=== PATIENT | female | born 1990 | race Caucasian/White ===

== ENCOUNTER 2020-05-27 11:00 | Outpatient (CLI) | payer MEDICAID, SELFPAY ==
--- NOTE | 2020-05-27 11:00 | MM_ITS ---
WS: [id number] DIAGNOSTIC BILATERAL DIGITAL MAMMOGRAM WITH CAD HISTORY: No breast pain today. History of bilateral breast pain. COMPARISON: None available. TECHNIQUE: Bilateral craniocaudad, mediolateral oblique, and mediolateral views are submitted. Comput er aided detection utilized. Breast composition: The breasts are heterogeneously dense, which may obscure small masses. Symmetric appearance of the fibroglandular densities. No distortion or mass. No nipple retraction. Normal appea arnaldo of the axillary tails. MM/[id number] IMPRESSION: BI-RADS: 1-Negative FOLLOW UP: Age 39
== END 2020-05-27 11:01 | disposition home or self-care (01) ==
LOC: RADSHAW 11:04
PROVIDERS: PCP Physician Assistant Medical; Visit Provider Nurse Practitioner Women's Health
DX: Z87.42 Personal history of other diseases of the female genital tract (principal)
CPT/HCPCS: 77066

== ENCOUNTER → 2024-06-19 13:12 | Outpatient (BNVA) | payer MEDICAID, SELFPAY | PROVIDERS: PCP Family Medicine; Visit Provider Nurse Practitioner Women's Health | DX: Z11.3 Encounter for screening for infections with a predominantly sexual mode of transmission (principal) | CPT/HCPCS: 86592; 86803; 87340; 87491; 87591; 87661; 87806 ==

== ENCOUNTER → 2024-09-17 15:00 | Outpatient (BNVA) | payer OTHER, SELFPAY | PROVIDERS: PCP Family Medicine; Visit Provider Nurse Practitioner Women's Health | DX: Z01.419 Encounter for gynecological examination (general) (routine) without abnormal findings (principal) | CPT/HCPCS: 87624 ==

== ENCOUNTER 2025-01-11 10:08 | Emergency (ER) | payer OTHER, SELFPAY ==
--- OUTSIDE RECORDS SUMMARY | 2025-01-07 09:18 | XMS_ITS | Encounter Summary ---
Author Organization [facility] Address [address] [place] [address] Care Team Providers Care Violin Restorer Name Role Phone Unavailable Primary Care Provider Unavailabl e Reason for Visit * Auth/Cert (Routine) Specialty Diagnoses / Procedures Referred By Cameron t Referred To Contact Gastroenterology Diagnoses Blood in stool Change in bowel habits Procedures ENDOSCOPY, COLON, DIAGNOSTIC NV COLONOSCOPY FLX DX W/COLLJ SPEC WHEN PFRMD NV COLONOSCOPY W/BIOPSY SINGLE/MULTIPLE NV COLSC FLX WITH DIRECTED SUBMUCOSAL NJX ANY SBST NV COLSC FLX W/RMVL OF TUMOR POLYP LESION SNARE TQ Edna Jin, ASSOCIATE PROFESSOR OF [employer] [address] [place] [phone] Phone: tel: fax: Carlos Chawla, DO [address] [place] [address] Phone: tel: fax: Referral ID Status Reason Start Date Expiration Date Visits Requested Visits Authorized [id number] Performing Department to Schedule 11/23/2024 12/24/2025 1 1 Encounter Details Date Type Department Care Team (Late st Contact Info) Description 01/07/2025 9:18 AM CDT - 01/07/2025 11:31 AM CDT Hospital Encounter [facility] [address] [place] [address] Carlos Chawla, DO [address] [place] [phone] Discharge Disposition: Home or Self Care Social History Tobacco Use Types Packs/Day Years Used Date Smoking Tobacco: Former Cigarettes Q uit: 07/08/2007 Smokeless Tobacco: Never Alcohol Use Standard Drinks/Week Comments No 0 (1 standard drink = 0.6 oz pur e alcohol) Feeling Safe Answer Date Recorded Are you in a relationship wi th someone who hurts you emotionally and/or physically? 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 Gender Identity Not on file Sexual Orientation Not on file documented as of this encounter Last Filed Vital Signs Vital Sign Reading Time Taken Comments Blood Pressure 93/70 01/07/2025 11:21 AM CDT Pulse 74 01/07/2025 11:21 AM CDT Temperature 36.7 C (98.1 F) 01/07/2025 9:58 AM CDT Respiratory Rate 20 01/07/2025 11:21 AM CDT Oxygen Saturation 100% 01/07/2025 11:21 AM CDT Inhaled Oxygen Concentration - - Weight 56.7 kg (125 lb) 12/22/2024 4:11 PM CDT Height 157.5 cm (5' 2 ) 12/22/2024 4:11 PM CDT Body Mass Index 22.86 12/22/2024 4:11 PM CDT documented in this encounter Discharge Instructions * Discharge Instructions* Adry Talavera ST - 01/07/2025 9:57 AM CDT COLONOSCOPY Endoscopy Discharge Instructions Please read the instructions outlined below and refer to this sheet in the next few weeks. These discharge instructions provide you with general information on caring for yourself after you leave [facility] services. Your doctor may also give you specific instructions. While your treatment has been planned according to the most current medical practices available, unavoidable complications occasionally occur. If you have any problems or questions after discharge, please call your doctor. Your procedure today is: Colonoscopy ACTIVITY You received sedation for your procedure today and we recommend the following: No driving or activity that requires concentration until the next day. Take frequent rest periods for the rest of the day today. Do not sign any important legal documents or operate any machinery until the next day. Due to the effects of sedation you will not have the same mental functionality as you normally do, therefore you should plan to rest at home today. It is recommended that you have a responsible adultstay with you the rest of the day today. NUTRITION Drink plenty of fluids. You may resume your normal diet. Begin with a light meal and progress to your normal diet. Avoid alcoholic beverages for 24 hours or as instructed by your caregiver. MEDICATIONS You should check with your physician before resuming any blood thinners or aspirin products. You may resume your normal medications unless your caregiver tells you otherwise. WHAT YOU CAN EXPECT TODAY You may experience abdominal discomfort such as a feeling of fullness or gas pains. Walking will help expel (get rid of) air and reduce the bloated feeling in your abdomen. FOLLOW UP Your doctor will notify you of your test results in the following ways: Your doctor may not call, but you will receive a letter in the mail with your results. Most results will post to your PeerApp account. To sign up for PeerApp, go to [email or web address] Now CALL A PHYSICIAN IMMEDIATELY FOR ANY OF THE FOLLOWING: Severe pain or excessive vomiting. Vomiting or passing of blood. Temperature greater than 101 or shaking chills. Redness, tenderness and swelling at site of IV that persists greater than 48 hours. RESULTS: If specimens (polyp, biopsy, etc.) were taken the results could take several days. If you do not receive results within 10 days, please call our office. A full report will be sent to your referring physician. [facility] - Gastroenterology [address], [address] Saturday- 8am-5pm & Fridays 8am-12pm please call: [phone] After hours voicemail: [phone] [facility] - [facility] [address] [phone] [facility] [address] [facility] [address] [phone] Gastroenterologists Nathanael Orozco, MD Tay Chaves MD Chris Knudsen, DO Christopher Koehn, MD Donald Mangum, MD Gisela Mikaela Sanon, DO Donato Mcmahon, MD Darrin St. Javi, MD [facility] - General and Specialty Surgery [address] [facility]. [address] Colorectal Surgeons DO Reza Mandujano MD I have received instructions from a nurse prior to my procedure and I understand the plan of care when I go home today. We appreciate your trust and greatly value your feedback. Our goal is to provide you with the highest level of care and service. You may be randomly selected to participate in a telephone survey about your visit. Your feedback about the positive experiences and opportunities for us to better serve you is import to us. Thank you for choosing [facility] Endoscopy. documented in this encounter Medications at Time of Discharge Simethicone 125 mg Tablet Dispense (3) 125 mg Simethicone chewable tablets with prep as directed. 3 Tablet 12/22/2024 multivitamin (DAILY-VIDYA) tablet Take 1 Tablet by mouth daily. 08/09/2020 documented as of this encounter H&P Notes * Carlos Chawla DO - 01/07/2025 10:38 AM CDT Endoscopy History and Physical This is a 35 y.o. female patient scheduled for Colonoscopy for the indication as listed: Diarrhea and rectal bleeding. Patient had risks and benefits discussed for colonoscopy with polypectomy or intervention of bleeding if necessary. The risks which include but are not limited to bleeding, perforation, swallowing ofstomach contents into the lungs (aspiration) or problems with heart or lung function associated with the procedure or sedation, unexpected allergic reaction to the medication used, damage to neighboring organs, infection and missed abnormalities such as polyps or cancers. Patient was explained thatcertain co-morbidities may increase the risk of some complications. The exam does not eliminate thefuture risk of cancer. Alternatives include stools tests and imaging studies. Patient had risks and benefits discussed for EGD with GUERRA capsule, biopsies, dilation, banding orintervention for bleeding if necessary. The risks which include but are not limited to unexpected allergic reaction to the medication used, a tear in the lining of the esophagus, stomach or small intestine, bleeding which may require transfusions, failure to diagnose as this is not a perfect test, infection, swallowing of stomach contents into the lungs (aspiration) or problems with heart or lungfunction associated with the procedure or sedation. Patient was explained that certain co-morbidities may increase the risk of some complications. Alternatives were discussed such as other tests or procedures along with medication trials. Explained to patient that treatment of complications may require hospitalization, antibiotics, additional procedures, blood transfusions, surgery or other measures deemed advisable for health and well-being. Past Medical History: Diagnosis Date Heart palpitations Patient denies medical problems UTI (urinary tract infection) Vitamin D deficiency Past Surgical History: Procedure Laterality Date HX APPENDECTOMY Allergies Allergen Reactions Iodinated Contrast Media Hives and Rash Morphine Rash Sulfa (Sulfonamide Antibiotics) Rash Social History Socioeconomic History Marital status: Spouse name: Not on file Number of children: Not on file Years of education: Not on file Highest education level: Not on file Occupational History Not on file Tobacco Use Smoking status: Former Current packs/day: 0.00 Types: Cigarettes Quit date: 07/08/2007 Years since quittin.5 Smokeless tobacco: Never Vaping Use Vaping status: Never Used Substance and Sexual Activity Alcohol use: No Drug use: No Sexual activity: Yes Partners: Male Other Topics Concern Not on file Social History Narrative Not on file Social Drivers of Health Food Insecurity: Not on file Transportation Needs: Not on file Feeling Safe: Not At Risk (01/07/2025) Feeling Safe Patient has indicated abuse: : No Housing Stability: Not on file Medications Prior to Admission Medication Sig Dispense Refill Last Dose/Taking multivitamin (DAILY-VIDYA) tablet Take 1 Tablet by mouth daily. Past Week Family History Problem Relation Name Age of Onset Healthy Father Jame guerrero Cancer Paternal Grandfather Darrin guerrero rectal cancer Heart Disease Maternal Grandfather Jayden kaur Cancer Maternal Grandmother Marcie kaur skin cancer Heart Disease Maternal Grandmother Marcie kaur Healthy Mother Waylon kaur Breast Cancer Other pggm Colon Cancer Neg Hx Physical Exam: General appearance/mental status patient alert and oriented in time place and person Neurological system within normal limits ASA Classification: ASA 2 - Patient with mild systemic disease with no functional limitations Mental Status Alert Lungs: normal respiratory effort and no acute respiratory distress Heart: regular rate Abdomen: Soft, non-tender Assessment: Plan: Will proceed with the above mentioned procedure as scheduled. documented in this encounter Procedure Notes * Carlos Chawla DO - 01/07/2025 10:57 AM CDTAssociated Order(s): COLONOSCOPY REPORT [facility] Patient Name: Blanca Lai Procedure Date: 01/07/2025 Date of : 1990 Admit Type: Outpatient Age: 35 Attending MD: Carlos Chawla DO, Procedure: Colonoscopy Indications: Chronic diarrhea, Rectal bleeding Providers: Carlos Chawla DO Referring MD: Medicines: Propofol per Anesthesia Complications: No immediate complications. Procedure: After I obtained informed consent, the scope was passed under direct vision. Throughout the procedure, the patient's blood pressure, pulse, and oxygen saturations were monitored continuously. The Colonoscope was introduced through the anus and advanced to the cecum, identified by appendiceal orifice and ileocecal valve. The colonoscopy was performed without difficulty. The patient tolerated the procedure well. The quality of the bowel preparation was good. Estimated Blood Loss: Estimated blood loss was minimal. Findings: Inflammation characterized by erosions, erythema and friability was found in a continuous and circumferential pattern from the anus to the transverse colon. The ascending colon and the cecum were spared. The inflammation was moderate in severity. Biopsies were taken with a cold forceps for histology. The terminal ileum appeared normal. Impression: - Left-sided ulcerative colitis. Inflammation was found from the anus to the transverse colon. This was moderate in severity. Biopsied. - The examined portion of the ileum was normal. Recommendation: - Patient has a contact number available for emergencies. The signs and symptoms of potential delayed complications were discussed with the patient. Return to normal activities tomorrow. Written discharge instructions were provided to the patient. - Resume previous diet. - Continue present medications. - Repeat colonoscopy date to be determined after pending pathology results are reviewed for surveillance. Carlos Chawla DO 01/07/2025 10:57:42 AM Number of Addenda: 0 Note Initiated On: 01/07/2025 10:13 AM Scope Withdrawal Time 0 hours 6 minutes 37 seconds Scope In: 10:44:04 AM Scope Out: 10:54:25 AM [address] [place], [place] documented in this encounter OR Notes * Tara-OP - Radha Tse RN - 12/22/2024 4:27 PM CDT NULYTE You must bring a responsible adult shuttle driver who is here the entire time you are here. We also ask that you have an adult who can stay with you the rest of the day because of the sedation. No foods with seeds or popcorn for 5 days prior to procedure. Denies constipation. Clear liquids the entire day prior to procedure. (NO RED COLORED beverages or milk products) In a.m. on day prior to procedure, add water to powder in nulytley container to fill line and refrigerate Drink 1/2 the prep starting at 5 pm the day before, drink an 8 ounce glass every 10-15 minutes. After finishing evening prep, chew 1 Gas X tablet, followed by 8 oz of water. May have additional clear liquids after first round of prep. 4 hours before your you leave home drink the other 1/2 in the same manner After morning round of prep, chew 2 Gas X tablets, followed by 8 oz of water. May take heart, blood pressure or seizure meds. 30 min. After completing prep with sip of water only. Nothing by mouth (including clear liquids) for 2 hours prior to procedure arrival time. If afternoon appointment, may have clear liquids prior to completing second half of prep on procedure day. No diabetic meds the morning of the procedure. Do not bring any jewelry or valuables to your appointment. No driving a vehicle or operating heavy machinery and/or making important decisions for 24 hours after your procedure. Denies recent or pending surgery. If you wear oxygen and have a portable tank, please bring it with you the day of your procedure. Bring only your shuttle driver the day of your procedure. Appointment time and location verified. documented in this encounter Plan of Treatment Upcoming Encounters Date Type Department Care Team (Late st Contact Info) Description 02/08/2025 10:15 AM CDT Office Visit [facility] Neurology [address] [facility] [address] [phone] [place] [address] [facility] [address] [place] [address] 02/23/2025 2:30 PM CDT Office Visit [facility] [address] [place] [address] Edna Stoner FNP [address] [facility] [address] [place] [address] 04/01/2025 2:30 PM CDT Appointment [facility] [address] [place] [phone] Veto Lipscomb MD [address] [place] [phone] Pending Results Name Type Priority Associated Diagnoses Date /Time PATHOLOGY Pathology Pathology 01/07/2025 10: 44 AM CDT Scheduled Orders Name Type Priority Associated Diagnoses Orde r Schedule PATHOLOGY Pathology Pathology Release Upon O rdering for 1 Occurrences starting 01/07/2025, 1 completed documented as of this encounter Procedures Procedure Name Priority Date/Time Associated Diagnosis Comments COLONOSCOPY REPORT 01/07/2025 10 :57 AM CDT POC , URINE Routine 01/07/2025 10:12 AM CDT NV COLONOSCOPY FLX DX W/COLLJ SPEC WHEN PFRMD 01/07/2025 9:20 AM CDT Blood in stool Change in bowel habits Case Notes Procedure :COLON Special Notes: MIRALAX PREP PER EDNA STONER Dx: Blood in stool, Change in bowel habits BT:NONE Diabetic: NO Diabetic/WT med:NONE LOC & REASON: HOSP - DUE TO SEDATION RISK BMI: 23.2 Last Procedure date & location Referring Provider: EDNA STONER Doc:Dr Carlos Chawla Insurance: [employer] documented in this encounter Results * COLONOSCOPY REPORT (01/07/2025 10:57 AM CDT) Narrative Procedure Note Carlos Chawla DO - 01/07/2025 10:57 AM CDT [facility] Patient Name: Blanca Lai Procedure Date: 01/07/2025 Date of : 1990 Admit Type: Outpatient Age: 35 Attending MD: Carlos Chawla DO, Procedure: Colonoscopy Indications: Chronic diarrhea, Rectal bleeding Providers: Carlos Chawla DO Referring MD: Medicines: Propofol per Anesthesia Complications: No immediate complications. Procedure: After I obtained informed consent, the scope was passed under direct vision. Throughout the procedure, the patient's blood pressure, pulse, and oxygen saturations were monitored continuously. The Colonoscope was introduced through the anus and advanced to the cecum, identified by appendiceal orifice and ileocecal valve. The colonoscopy was performed without difficulty. The patient tolerated the procedure well. The quality of the bowel preparation was good. Estimated Blood Loss: Estimated blood loss was minimal. Findings: Inflammation characterized by erosions, erythema and friability was found in a continuous and circumferential pattern from the anus to the transverse colon. The ascending colon and the cecum were spared. The inflammation was moderate in severity. Biopsies were taken with a cold forceps for histology. The terminal ileum appeared normal. Impression: - Left-sided ulcerative colitis. Inflammation was found from the anus to the transverse colon. This was moderate in severity. Biopsied. - The examined portion of the ileum was normal. Recommendation: - Patient has a contact number available for emergencies. The signs and symptoms of potential delayed complications were discussed with the patient. Return to normal activities tomorrow. Written discharge instructions were provided to the patient. - Resume previous diet. - Continue present medications. - Repeat colonoscopy date to be determined after pending pathology results are reviewed for surveillance. Carlos Chawla DO 01/07/2025 10:57:42 AM Number of Addenda: 0 Note Initiated On: 01/07/2025 10:13 AM Scope Withdrawal Time 0 hours 6 minutes 37 seconds Scope In: 10:44:04 AM Scope Out: 10:54:25 AM [address] [place], [place] us Carlos Chawla DO GI PROCEDURE ORDERABLES Final Result * POC , URINE (01/07/2025 10:12 AM CDT) HCG QUAL URINE Negative Negative 01/07/2025 10:12 AM CDT [facility] Urine 01/07/2025 10:1 2 AM CDT 01/07/2025 10:11 AM CDT Narrative [facility] - 01/07/2025 10:12 AM CDT Positive : Result is greater than or equal to 25 mIU/mL Negative: Result is less than 25 mIU/mL Invalid: Result is borderline or indeterminate,send to lab for serum test methodology. us Carlos Chawla DO POINT OF CARE TESTING F inal Result [facility] CLIA # [id number] [address] [address] [place] [address] documented in this encounter Visit Diagnoses Not on filedocumented in this encounter
--- OUTSIDE RECORDS SUMMARY | 2025-01-07 09:20 | XMS_ITS | Encounter Summary ---
Author Organization [facility] Address [address] [place] [address] Care Team Providers Care Non Clinical Advisor Name Role Phone Unavailable Primary Care Provider Unavailabl e Reason for Visit * Auth/Cert (Routine) Specialty Diagnoses / Procedures Referred By Cameron t Referred To Contact Gastroenterology Diagnoses Blood in stool Change in bowel habits Procedures ENDOSCOPY, COLON, DIAGNOSTIC NE COLONOSCOPY FLX DX W/COLLJ SPEC WHEN PFRMD NE COLONOSCOPY W/BIOPSY SINGLE/MULTIPLE NE COLSC FLX WITH DIRECTED SUBMUCOSAL NJX ANY SBST NE COLSC FLX W/RMVL OF TUMOR POLYP LESION SNARE TQ Edna Jin, CAE ENGINEER [address] [address] Phone: tel: fax: Carlos Chawla, DO [address] [place] [address] Phone: tel: fax: Referral ID Status Reason Start Date Expiration Date Visits Requested Visits Authorized [id number] Performing Department to Schedule 11/23/2024 12/24/2025 1 1 Encounter Details Date Type Department Care Team (Late st Contact Info) Description 01/07/2025 9:20 AM CDT - 01/07/2025 9:40 AM CDT Surgery [facility] Endoscopy [address] [place] [address] Carlos Chawla, DO [address] [place] [address] COLONOSCOPY Surgery Details Date/Time Status Location OR Service Patient Class Case Class Case Type Trauma Case? 01/07/2025 9:20 AM Posted [facility] NE 03 Gastroenterology Outpatient Elective No Panel 1 Procedure LRB Anes Op Region Wound Class Comments COLONOSCOPY N/A Monitored Anesth etic Care Anus Procedure :COLON Special Notes: MIRALAX PREP PER EDNA GEORGIANA Dx: Blood in stool, Change in bowel habits BT:NONE Diabetic: NO Diabetic/WT med:NONE LOC & REASON: HOSP - DUE TO SEDATION RISK BMI: 23.2 Last Procedure date & location Referring Provider: EDNA STONER Doc:Dr Carlos Chawla Insurance: [employer] Surgeon Surgeon Role Service Panel Carlos Chawla, DO Primary Gastroenterolo gy 1 Case Notes Procedure :COLON Special Notes: MIRALAX PREP PER EDNA GEORGIANA Dx: Blood in stool, Change in bowel habits BT:NONE Diabetic: NO Diabetic/WT med:NONE LOC & REASON: HOSP - DUE TO SEDATION RISK BMI: 23.2 Last Procedure date & location Referring Provider: EDNA STONER Doc:Dr Carlos Chawla Insurance: PRIVATE HEALTH documented in this encounter Social History Tobacco Use Types Packs/Day Years [...] on file 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 Your doctor may also give you specific [...] results. Most results will post to your EverCharge account. To sign up for EverCharge, go to www.[employer] Business Plan[employer] Now CALL A PHYSICIAN IMMEDIATELY FOR ANY [...] physician. [facility] - Gastroenterology [address] [facility], [address] Saturday- 8am-5pm & Fridays 8am-12pm please call: [phone] After hours voicemail: [phone] [facility] Endoscopy - Lower Level [address] [phone] [facility] End[facility] - [place] [address] [facility] [facility] Emergency Room [address] [phone] Gastroenterologists Nathanael Orozco, MD Tay Chaves MD Chris Knudsen, MD Toi Strauss MD Gisela Ocasio Quinones, MD Darrin Benitez MD [facility] - General and Specialty Surgery [address] Colorectal Surgeons Alicia Rodriguez, DO Reza Peters MD I have received instructions from a [...] import to us. Thank you for choosing [facility] Endoscopy. documented in this encounter Medications at [...] 01/07/2025 10:57 AM CDTAssociated Order(s): COLONOSCOPY REPORT [facility] GI Patient Name: Blanca Lai Procedure Date: [...] pathology results are reviewed for surveillance. Carlos Chawal DO 01/07/2025 10:57:42 AM Number of Addenda: 0 Note Initiated On: 01/07/2025 10:13 AM Scope Withdrawal Time 0 hours 6 minutes 37 seconds Scope In: 10:44:04 AM Scope Out: 10:54:25 AM [address] [place], [place] documented in this encounter OR Notes * Tara-OP - Rahda Tse RN - 12/22/2024 4:27 PM CDT NULYTE You must bring a responsible adult utility driver who is here the entire time [...] day of your procedure. Bring only your utility driver the day of your procedure. Appointment time and location verified. documented in this encounter Plan of Treatment Upcoming Encounters Date Type Department Care Team (Late st Contact Info) Description 02/08/2025 10:15 AM CDT Office Visit [facility] Neurology [address] [place] [phone] [place] [address] [address] 02/23/2025 2:30 PM CDT Office Visit [facility] Gastroenterology- [place] [address] [address] Edna Stoner FNP [address] [address] 04/01/2025 2:30 PM CDT Appointment [facility] Neurology [facility] [address] [place] [address] Veto Lipscomb MD [address] [place] [phone] Pending Results Name Type Priority Associated Diagnoses [...] , URINE Routine 01/07/2025 10:12 AM CDT NE COLONOSCOPY FLX DX W/COLLJ SPEC WHEN PFRMD [...] Chawla DO - 01/07/2025 10:57 AM CDT [facility] GI Patient Name: Blanca Lai Procedure Date: [...] Scope Out: 10:54:25 AM [address] [place], [place] Carlos Chawla DO GI PROCEDURE ORDERABLES Final Result * POC , URINE (01/07/2025 10:12 AM CDT) HCG QUAL URINE Negative Negative 01/07/2025 10:12 AM CDT [facility] Urine 01/07/2025 10:1 2 AM CDT 01/07/2025 10:11 AM CDT Narrative [facility] - 01/07/2025 10:12 AM CDT Positive : Result is greater than or equal to 25 mIU/mL Negative: Result is less than 25 mIU/mL Invalid: Result is borderline or indeterminate,send to lab for serum test methodology. Carlos Chawla DO POINT OF CARE TESTING F inal Result [facility] CLIA # [id number] [address] [place] [address] documented in this encounter Visit Diagnoses Not on filedocumented in this encounter
--- OUTSIDE RECORDS SUMMARY | 2025-01-07 10:39 | XMS_ITS | Encounter Summary ---
Author Organization [facility] Address [address] [place] [address] Care Team Providers Care Station Baggage Agent Name Role Phone Unavailable Primary Care Provider Unavailabl e Reason for Visit * Auth/Cert (Routine) Specialty Diagnoses / Procedures Referred By Cameron t Referred To Contact Gastroenterology Diagnoses Blood in stool Change in bowel habits Procedures ENDOSCOPY, COLON, DIAGNOSTIC OR COLONOSCOPY FLX DX W/COLLJ SPEC WHEN PFRMD OR COLONOSCOPY W/BIOPSY SINGLE/MULTIPLE OR COLSC FLX WITH DIRECTED SUBMUCOSAL NJX ANY SBST OR COLSC FLX W/RMVL OF TUMOR POLYP LESION SNARE TQ Mary Jane Jin, GAS METER INSTALLER HELPER [address] [place] [address] Phone: tel: fax: Carlos Chawla, DO [address] [place] [address] Phone: tel: fax: Referral ID Status Reason Start Date Expiration Date Visits Requested Visits Authorized [id number] Performing Department to Schedule 11/23/2024 12/24/2025 1 1 Encounter Details Date Type Department Care Team (Late st Contact Info) Description 01/07/2025 10:39 AM CDT Anesthesia Event [facility] Endoscopy [address] [place] [phone] Kolton Lebron MD [address] [place] [address] Anesthesia Record Procedure Summary Procedure Name Responsible Anesthesiologist Anesthesia Start Time Anesthesia Stop Time COLONOSCOPY (Anus) Kolton Lebron MD 01/07/25 1039 1059 Events Date Time Event Comment 01/07/2025 1018 1033 In Room This event disp lays the In Room time documented in the Surgical Log. Deleting this event will not remove it from the log but will remove it from the Grid and Graph timeline. 1039 AN Equip Check Anesthesia eq uipment and materials checked in accordance with local policy. 1039 An Start 1039 An Start Data 1040 Pre-Induction Immediate pre- induction anesthetic assessment performed. Vital signs as noted on graphic. 1042 An Induction 1044 Procedure Start This event d isplays the Procedure Start time documented in the Surgical Log. Deleting this event will not remove it from the log but will remove it from the Grid and Graph timeline. 1044 Anesthesia Ready 1054 Procedure Stop This event di splays the Procedure Stop time documented in the Surgical Log. Deleting this event will not remove it from the log but will remove it from the Grid and Graph timeline. 1058 an stop data 1059 Out of Room This event disp lays the Out of Room time documented in the Surgical Log. Deleting this event will not remove it from the log but will remove it from the Grid and Graph timeline. 1059 An Stop 1059 Hand-off to Receiving Clinic piero Meds Name Total propofol (DIPRIVAN) 10 mg/mL injection 280 mg lidocaine (XYLOCAINE) 2% injection 100 m g sodium chloride 0.9% infusion 350 mL * Agents Name O2 O2 * Blood No blood administrations on file. 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 Gender Identity Not on file Sexual Orientation Not on file documented as of this encounter OR Notes * Anesthesia Postprocedure Evaluation - Kolton Lebron MD - 01/07/2025 12:08 PM CDT Post Anesthesia Evaluation Vitals: Vitals Value Taken Time BP 93/70 01/07/25 1121 Temp Resp 20 01/07/25 1121 SpO2 100 % 01/07/25 1121 Pulse 74 01/07/25 1121 Heart Rate 74 bpm 01/07/25 1121 Pain Rating: Anesthesia Post Evaluation Patient location during evaluation: PACU Patient participation: patient was able to participate in the post op evaluation Level of consciousness: 0 = alert, responsive, answers simple questions appropriately, able to perform simple tasks Pain management: adequate Airway patency: patent Nausea or Vomiting: none Cardiovascular status: regular rate and rhythm Respiratory status: no respiratory symptoms Hydration status: well hydrated No notable events documented. Kolton Lebron MD * Anesthesia Handoff - Eamon Harris CRNA - 01/07/2025 10:59 AM CDT Post-Anesthetic transfer of care report elements to appropriate post-anesthesia recovery environment completed in accordance with procedure. I completed my handoff to the receiving nurse during which we: 1. Identified the patient 2. Identified the responsible provider 3. Reviewed the pertinent medical history 4. Discussed the surgical course 5. Reviewed intra-op anesthesia management and issues during anesthesia 6. Set expectations for post-procedure period 7. Orders as necessary and appropriate for continuation of care are present in Epic. 8. Allowed opportunity for questions and acknowledgement of understanding. Vitals stable, spont resp, transport to Recovery. Report to GI RN. 10:59 AM Eamon Harris CRNA * Anesthesia Preprocedure Evaluation - Kolton Lebron MD - 01/07/2025 10:17 AM CDT Relevant Problems No relevant active problems Anesthesia Evaluation Airway Neck ROM: full Dental Pulmonary - negative ROS breath sounds clear to auscultation Cardiovascular - negative ROS Rhythm: regular Rate: normal Neuro/Psych (+) headaches GI/Hepatic/Renal - negative ROS Endo/Other - negative ROS Abdominal Anesthesia History Anesthesia Plan ASA Final: 1 MAC NPO status > 8 hours Anesthetic plan and risks discussed with Patient. Plan discussed with Locker Room Supervisor. documented in this encounter Plan of Treatment Upcoming Encounters Date Type Department Care Team (Late st Contact Info) Description 02/08/2025 10:15 AM CDT Office Visit [facility] Neurology [address] [place] [phone] Bella Stern MD [address] [place] [address] 02/23/2025 2:30 PM CDT Office Visit [facility] Gastroenterology- [place] [address] [address] Mary Jane Rodriguez [facility] [address] [address] 04/01/2025 2:30 PM CDT Appointment [facility] Neurology [facility] [address] [place] [address] Veto Lipscomb MD [address] [place] [address] documented as of this encounter Visit Diagnoses Not on filedocumented in this encounter Administered Medications Inactive Administered Medications - up to 3 most recent administrations Medication Order MAR Action Action Date Dose Rate Site lidocaine 2 % (XYLOCAINE) injection IV, INTRA-PROCEDURE PRN, Starting on Yamini 01/07/25 at 1042, Until Yamini 01/07/25 at 1059, Routine, Anesthesia Intra-op Given 01/07/2025 10:42 AM CDT 100 mg propofoL (DIPRIVAN) injection IV, INTRA-PROCEDURE PRN, Starting on Yaimni 01/07/25 at 1042, Until Yamini 01/07/25 at 1059, Anesthesia Intra-op Given 01/07/2025 10:53 AM CDT 30 mg Given 01/07/2025 10:50 AM CDT 50 mg Given 01/07/2025 10:48 AM CDT 50 mg sodium chloride 0.9 % infusion IV, INTRA-PROCEDURE CONTINUOUS PRN, Starting on Yamini 01/07/25 at 1039, Until Yamini 01/07/25 at 1059, Routine, Anesthesia Intra-op New Bag 01/07/2025 10:39 AM CDT documented in this encounter
[2025-01-11] VITALS (14 sets, daily range): BP systolic 93–114; BP diastolic 59–73; PULSE 96; RESP 16; TEMP 36.9; O2SAT 97–100; BMI 22.8
--- OUTSIDE RECORDS SUMMARY | 2025-01-11 10:32 | XMS_ITS | Patient Health Record ---
Author Organization [facility] Address [address] [place] [address] Support Name Relationship Address Phone [facility] Emergency Contact [address] [place] [address] Blanca Lai Guarantor Unknown [phone] Allergies Allergen (clinical drug ingredient) Drug/Non Drug Allergy documented on EMR Reaction Allergy Type Onset Date Status Iodinated contrast media (substance) Iodinated Diagnostic Agents unknown Drug Allergy Active morphine Morphine unknown Drug Allergy Active Substance with sulfonamide structure and antibacterial mechanism of action (substance) Sulfa Antibiotics unknown Drug Allergy Active Reason For Referral No Information Medications Medication SIG (Take, Route, Frequency, Duration) Notes Start Date End Date Status Pantoprazole Sodium 40 MG 1 tablet Orall y Once a day for 90 days 06/12/2022 Not-Taking Multivitamin - 1 tablet Orally Once a day Active Social History Tobacco Use: Social History Observation Description Date Details (start date - stop date) Former Smoker NA - NA xTobacco Use/Smoking Question Answer Notes Are you a former smoker How long has it been since you last smoked? > 10 years Alcohol Screen (Audit-C) Question Answer Notes Did you have a drink containing alcohol in the p ast year? 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 Health Plan Medicaid Replacement [address] [place] [address] [id number] Blanca Lai Self - patient is the insured [employer] [address] [place] [address] [id number] Blanca Lai Self - patient is the insured Medical (General) History Medical History History ICD Code HX of breast psychiatric care Surgical History Surgery Date(Month/Year) HX of appendectomy
--- OUTSIDE RECORDS SUMMARY | 2025-01-11 10:32 | XMS_ITS | Data Portability ---
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 Plan of Treatment Reminders Order Date Submit Date Provider Last Modified By Organization Details Last Modified Time Details Appointments None recorded. Lab vitamin D, 25-hydroxy, total, serum 2024 025 [facility], [address], [address], [place], [address], 5 07:44:00 CBC 2024 025 [facility] [employer] [facility], [facility] [address], [address], [place], [address], 5 08:45:20 magnesium, serum or plasma 2023 024 [facility] [address], [address], [place], [address], 4 05:51:27 vitamin B12, serum 2023 024 [facility], [facility] [address], [address], [place], [address], 4 05:51:29 vitamin D, 25-hydroxy, total, serum 2023 024 24[facility]y [facility], [address], [address], [place], [address], 4 05:51:30 TSH, serum or plasma 2023 024 [facility]y [facility], [address] , [address], [place], [address], 4 05:51:28 Referral None recorded. Procedures None recorded. Surgeries None recorded. Imaging electrocard iogram 2024 025 [facility] [address] [place], [address], 5 16:13:31 PFT, complete [address] (Scheduling Orders), [address] [place], [address], 5 09:48:48 US, gallbladder 2023 024 [email or web address] 2 [facility], [address] [place], [address], 4 17:37:21 Medication Orders None recorded. Patient TargetsNo targets recorded. Patient InstructionsNo instructions recorded. Reason for Referral None Reported. Results Created Date Observation Date Name Description Value Unit Range Abnormal Flag Note LastModifiedBy Organization Detail LastModifiedTime 05/19/2005/20/2024 MAGNE SIUM magnesium 2.1 mg/dL 1.5-2. 5 normal Not Available [employer] [facility] [address] , [place], [address], 05/20/2024 05:51:27 05/19/20 24 05/20/2024 TSH TSH 1.27 mIU/L normal Refer ence Range > or = 20 Years 0.40- 4.50 Pregn ashley Range s First trime ster 0.26- 2.66 Secon d trime ster 0.55- 2.73 Third trime ster 0.43- 2.91 Not Available [employer] [facility] [address] [place], [address], 05/20/2024 05:51:28 05/19/20 24 05/20/2024 VITAM IN B12 vitamin B12 560 pg/mL 200-11 00 normal Not Available [employer] [facility] [address] [place], [address], 05/20/2024 05:51:29 05/19/20 24 05/20/2024 VITAM IN D,25- OH,TO CARI,I A vitamin D,25-oh,tota l,ia 27 NG/mL 30-100 low Vitam in D Statu s 25-OH Vitam in D: Defic iency : <20 ng/mL Insuf ficie ncy: 20 - 29 ng/mL Optim al: > or = 30 ng/mL For 25-OH Vitam in D testi ng on patie nts on D2-retana pplem entat ion and patie nts for whom quant itati on of D2 and D3 fract ions is requi red, the [facility] Assur eD(TM ) 25-OH VIT D, (D2,D 3), LC/MS /MS is recom zulema d: order code 33285 (jose ents >2yrs ). See Note 1 Note 1 For addit ional infor kavita thakkar refer to http: //[facility] Veronica gnmillie ics.c om/fa q/FAQ 199 (This link is being provi ded for infor marla fair/ larisa avila purpo ses only. ) Not Available [employer] [facility] [address] [place], [address], 05/20/2024 05:51:30 07/24/19 25 07/25/2024 CBC (INCL UDES DIFF/ PLT) white blood cell count 5.8 thous and/u L 3.8-10 .8 normal Not Available [employer] [facility] [address] [place], [address], 07/25/2024 07:43:59 07/24/19 25 07/25/2024 CBC (INCL UDES DIFF/ PLT) red blood cell count 4.80 murali on/uL 3.80-5 .10 normal Not Available [address], [address], 07/25/2024 07:43:59 07/24/19 25 07/25/2024 CBC (INCL UDES DIFF/ PLT) hemoglobin 10.8 g/dL 11.7-1 5.5 low Not Available [address], [address], 07/25/2024 07:43:59 07/24/19 25 07/25/2024 CBC (INCL UDES DIFF/ PLT) hematocrit 35.4 % 35.0-4 5.0 normal Not Available [address], [address], 07/25/2024 07:43:59 07/24/19 25 07/25/2024 CBC (INCL UDES DIFF/ PLT) MCV 73.8 fL 80.0-1 00.0 low Not Available [address], [address], 07/25/2024 07:43:59 07/24/19 25 07/25/2024 CBC (INCL UDES DIFF/ PLT) MCH 22.5 pg 27.0-3 3.0 low Not Available [address], [address], 07/25/2024 07:43:59 07/24/19 25 07/25/2024 CBC (INCL UDES DIFF/ PLT) MCHC 30.5 g/dL 32.0-3 6.0 low For adult s, a sligh t decre ase in the calcu lated MCHC value (in the range of 30 to 32 g/dL) is most likel y not clini bear signi lobo t; vince er, it shoul d be inter prete d with cauti on in virtua voorhees n with other red cell roman eters and the patie nt's clini jae condi tion. Not Available [address], [address], 07/25/2024 07:43:59 07/24/19 25 07/25/2024 CBC (INCL UDES DIFF/ PLT) RDW 14.3 % 11.0-1 5.0 normal Not Available [address], [address], 07/25/2024 07:43:59 07/24/1907/25/2024 CBC (INCL UDES DIFF/ PLT) platelet count 316 thous and/u L 140-40 0 normal Not Available [address], [address], 07/25/2024 07:43:59 07/24/19 25 07/25/2024 CBC (INCL UDES DIFF/ PLT) MPV 10.9 fL 7.5-12 .5 normal Not Available [address], [address], 07/25/2024 07:43:59 07/24/19 25 07/25/2024 CBC (INCL UDES DIFF/ PLT) absolute neutrophils 3468 cells /uL 1500-7 800 normal Not Available [address], [address], 07/25/2024 07:43:59 07/24/19 25 07/25/2024 CBC (INCL UDES DIFF/ PLT) absolute lymphocytes 1781 cells /uL 850-39 00 normal Not Available [address], [address], 07/25/2024 07:43:59 07/24/19 25 07/25/2024 CBC (INCL UDES DIFF/ PLT) absolute monocytes 389 cells /uL 200-95 0 normal Not Available [address], [address], 07/25/2024 07:43:59 07/24/1907/25/2024 CBC (INCL UDES DIFF/ PLT) absolute eosinophils 110 cells /uL 15-500 normal Not Available [facility] [address], [address], 07/25/2024 07:43:59 07/24/1907/25/2024 CBC (INCL UDES DIFF/ PLT) absolute basophils 52 cells /uL 0-200 normal Not Available [facility] [address], [address], 07/25/2024 07:43:59 07/24/1907/25/2024 CBC (INCL UDES DIFF/ PLT) neutrophils 59.8 % normal Not Available [facility] [address], [address], 07/25/2024 07:43:59 07/24/1907/25/2024 CBC (INCL UDES DIFF/ PLT) lymphocytes 30.7 % normal Not Available [facility] [address], [address], 07/25/2024 07:43:59 07/24/1907/25/2024 CBC (INCL UDES DIFF/ PLT) monocytes 6.7 % normal Not Available [facility] [address], [address], 07/25/2024 07:43:59 07/24/1907/25/2024 CBC (INCL UDES DIFF/ PLT) eosinophils 1.9 % normal Not Available [facility] [address], [address], 07/25/2024 07:43:59 07/24/1907/25/2024 CBC (INCL UDES DIFF/ PLT) basophils 0.9 % normal Not Available [facility] [address], [address], 07/25/2024 07:43:59 07/24/19 25 07/25/2024 VITAM IN D,25- OH,TO CARII A vitamin D,25-oh,tota margaritaia 43 NG/mL 30-100 normal Vitam in D Statu s 25-OH Vitam in D: Defic iency : <20 ng/mL Insuf ficie ncy: 20 - 29 ng/mL Optim al: > or = 30 ng/mL For 25-OH Vitam in D testi ng on patie nts on D2-retana pplem entat ion and patie nts for whom quant itati on of D2 and D3 fract ions is requi red, the [facility] Assur eD(TM ) 25-OH VIT D, (D2,D 3), LC/MS /MS is recom zulema d: order code 35434 (jose ents >2yrs ). See Note 1 Note 1 For addit ional infor kavita thakkar e refer to http: //[facility] kirk.Vinay stDia gnost ics.c om/fa q/FAQ 199 (This link is being provi ded for infor marla fair/ educdejuan avila purpo ses only. ) Not Available [facility] [employer] [address] [address] [place], [address], 07/25/2024 07:44:00 07/24/19 25 07/27/2024 elect rocar diogr am No observ ation record ed. [email or web address] [facility] ([facility]) [address] [place] [address], [address], 07/28/2024 10:21:15 07/24/19 25 elect rocar diogr am No observ ation record ed. [email or web address] [facility] ([facility]) [address] [place] [address], [address], 07/24/2024 16:13:31 07/28/19 25 elect rocar diogr am No observ ation record ed. [email or web address] Not Available 2024 15:34:33 Result Notes None recorded. Problems Name Problem SNOMED Code Status Onset Date Resolution Date Notes Provider Name and Address Organization Details Recorded Time Dilation and curettage of uterus Completed 201911/10/2024 D & C; 2005; 020 8:40AM by Belem Kaur , Office Visit; Promote d; acuity set as *; Ashlee simmons [facility] 5 18:14:22 Anxiety 06051716 Active 2023 [facility] 4 10:51:35 Paresthesi a 79719641 Active 2023 [facility] 18:14:56 Fatigue 76978745 Active 2023 [facility] 18:14:37 Right upper quadrant pain 078224332 Active 2023 Ashlee Mau iris [facility] 18:15:03 Dyspnea 678426096 Active 2024 [facility] 18:14:32 Intermitte nt palpitatio ns 204636265 Active 2024 Ashlee simmons [facility] 18:14:43 Vitamin D deficiency 66587892 Active 2024 [facility] 18:15:11 Iron deficiency anemia 61640103 Active 2024 [facility] 18:14:48 Gastrointe stinal hemorrhage 38440006 Active 2024 Jose Dennis MD [address] [place] [address], [phone], [facility] 5 18:33:59 Problem Notes None recorded. Procedures Surgical History Date Name Laterality Status Provider Name and Address Organization Details Recorded Time Appendectomy completed DARSHANA RFANCOIS [facility] 05/13/2024 16:31:04 Imaging Results None recorded. Procedure Notes None recorded. Medical Equipment None Reported. Allergies Allergen ID Allergen Name Allergen Category Reaction Reaction Severity Criticality Documentation Date Start Date Code Code System Note Provider Name and Address Organization Details Recorded Time 97379 Substance with sulfonami de structure and antibacte rial mechanism of action (substanc e) medicatio n rash Not available low 05/19/2024 62384 8003 SNOMED [facility]SHANA [facility]DR[facility] 4 10:46:11 78087 morphine medicatio n rash Not available [facility] 05/19/2024 7052 RxNorm [facility]SHANA [facility] 4 10:46:28 23103 Iodinated contrast media (substanc e) medicatio n rash Not available [facility] 05/19/2024 04390 2003 SNOMED [facility] 4 10:46:53 Medications Name Sig Start Date Stop Date Status Note LastModified by Organization Details LastModified Time phenazopy ridine 200 mg tablet TAKE 1 TABLET BY MOUTH THREE TIMES DAILY NEEDED FOR PAIN 05/19 completed Not Available Not Available Not Available clonazepa m 0.5 mg tablet TAKE 1/2 TO 1 (ONE-AURELIA F TO ONE) TABLET BY MOUTH TWICE DAILY NEEDED FOR SEVERE ANXIETY 05/19 completed Not Available Not Available Not Available propranol ol 10 mg tablet TAKE 1/2 TO 1 (ONE-AURELIA F TO ONE) TABLET BY MOUTH THREE TIMES DAILY NEEDED FOR ANXIETY 05/19 completed Not Available Not Available Not Available cephalexi n 500 mg capsule TAKE 1 CAPSULE BY MOUTH TWICE DAILY FOR 7 DAYS 05/19 completed Not Available Not Available Not Available escitalop lilian 10 mg tablet TAKE 1 TABLET BY MOUTH ONCE DAILY STARTING AT WEEK 5 OF TITRATIO N 05/19 completed Not Available Not Available Not Available escitalop lilian 5 mg tablet TAKE 1/2 (ONE-AURELIA F) TABLET BY MOUTH AT BEDTIME FOR 7 DAYS, THEN INCREASE TO 1 TABLET BY MOUTH FOR 2 WEEKS. CAN INCREASE TO 10 MG DOSE IF DESIRED AT WEEK 5 OF TITRATIO N 05/19 completed Not Available Not Available Not Available nitrofura ntoin monohydra te/macroc rystals 100 mg capsule TAKE 1 CAPSULE BY MOUTH TWICE DAILY FOR 7 DAYS 05/19 completed Not Available Not Available Not Available Ortho Tri-Cycle n (28) QD 05/19 completed Recorded 11/25/19 10 1:52PM by Arnie Martinez CMA, Office Visit; Refill Quantity : 28; Tablet; Not Available Not Available Not Available Vitamin qd 05/19 completed 0; Recorded 10/31/19 20 8:40AM by Belem Kaur, Office Visit; Not Available Not Available Not Available Narcan 4 mg/actuat ion nasal spray TAKE 2 SPRAYS NEEDED BY NASAL ROUTE FOR OPIATE/B NADIR OVERDOSE 05/19 completed Not Available Not Available Not Available Vitals Date Recorded Body height Body mass index (BMI) Body weight Body temperature Oxygen saturation Oxygen saturation in Arterial blood by Pulse oximetry Heart rate Systolic And Diastolic Provider Name and Address Organization Details Last Updated DateTime 5 157.48 cm 23.6 kg/m2 55116.8 2 g 97.7 [degF] 99 % 99 % 73 /min 110/74 mm[Hg] MARCO PAVON [facility] 5 10:29:55 Date Recorded Body height Body mass index (BMI) Body weight Oxygen saturation Oxygen saturation in Arterial blood by Pulse oximetry Heart rate Respiratory rate Body temperature Systolic And Diastolic Provider Name and Address Organization Details Last Updated DateTime 5 157.48 cm 23.6 kg/m2 42587.1 3 g 98 % 98 % 78 /min 16 /min 97.6 [degF] 92/60 mm[Hg] Ashlee León [facility] 5 12:48:47 Date Recorded Respiratory rate Body height Body mass index (BMI) Body weight Body temperature Heart rate Oxygen saturation Oxygen saturation in Arterial blood by Pulse oximetry Systolic And Diastolic Provider Name and Address Organization Details Last Updated DateTime 4 20 /min 157.48 cm 23.9 kg/m2 84074.4 5 g 97.6 [degF] 71 /min 97 % 97 % 92/60 mm[Hg] DARSHANASA FRANCOIS [facility] 4 10:45:53 Social History Question Answer Notes LastModified by [email or web address] Details LastModified Time Tobacco Smoking Status Former Smoker DARSHANASA ALESSANDRO simmons [facility] 05/19/2024 10:48:59 Do You Have An Advance Directive? No Information not available 05/19/2024 Are You Blind Or Do You Have Difficulty Seeing? No Information not available 05/19/2024 What Is Your Level Of Caffeine Consumption? None Information not available 05/19/2024 Are You Deaf Or Do You Have Serious Difficulty Hearing? No Information not available 05/19/2024 What Type Of Diet Are You Following? REGULAR Information not available 05/19/2024 What Is The Highest Grade Or Level Of School You Have Completed Or The Highest Degree You Have Received? [id number] Information not available 05/19/2024 Which Of Your Hands Is Dominant? Right Information not available 05/19/2024 What Is Your Current Pack Years? [email or web address] Information not available 11/11/2024 Have You Recently Traveled Abroad? No Information not available 05/19/2024 Do You Have Difficulty Walking Or Climbing Stairs? No Information not available 05/19/2024 Are You Currently In School? No Information not available 05/19/2024 Do You Have Any Dietary Restrictions? No Information not available 05/19/2024 Sex: Unknown Functional Status Question Answer Note LastModified by OrganizTripleseat ion Details LastModified Time Do you use any illicit or recreational drugs? No Information not available 05/19/2024 What is your level of alcohol consumption? None Information not available 05/19/2024 Are you currently employed? Yes Information not available 05/19/2024 Do you have transportation difficulties? No Information not available 05/19/2024 Are you able to walk? YESWOREST Information not available 05/19/2024 Do you have difficulty doing errands alone? No Information not available 05/19/2024 Are you able to care for yourself? Yes Information not available 05/19/2024 Do you have difficulty dressing or bathing? No Information not available 05/19/2024 What is your exercise level? None Information not available 05/19/2024 Mental Status Question Answer Note LastModified by Organization D etails LastModified Time Do you have difficulty concentrating, remembering or making decisions? No Information no t available 05/19/2024 Family History Relationship Description Onset Age of this Age Resolved Age Notes LastModified by Organization Details LastModified Time Mother Cerebrovascu lar accident tgregg Not available 06/2024 10:48:04 Maternal Grandmother Malignant neoplastic disease tgregg Not available 2023 10:48:15 Medical History No medical history recorded. Gynecological HistoryNo gynecological history recorded. Obstetrics History GPAL:G 0 P 0 0 0 0 Immunizations Vaccine Type Date Status Note Provider Nam e and Address Organization Details Recorded Time influenza, split (incl. purified surface antigen) 9 completed Not Available [facility] 11/11/2024 12:42:05 COVID-19, mRNA, LNP-S, PF, 30 mcg/0.3 mL dose 1 completed Not Available [facility] 11/11/2024 12:42:05 COVID-19, mRNA, LNP-S, PF, 30 mcg/0.3 mL dose 1 completed Not Available [facility] 11/11/2024 12:42:05 Influenza, split virus, trivalent, preservative 0 completed Not Available [facility] 02/02/2023 02:32:32 Past Encounters Encounter ID Performer Location Encounter Start Date Encounter Closed Date Diagnosis/Indication Diagnosis SNOMED-CT Code Diagnosis ICD10 Code Diagnosis Note [id number] Jose Dennis MD [facility] ([facility]) [address] [place] [phone] 05/19/2024 10:39:45 05/19/2024 11:16:12 Paresthesia 96014979 R20.2 The patient is having random paresthesi as. The patient sees neurology and has an MRI scheduled next week. The patient has had normal labs but did not have more specific testing lab work done. Fatigue 44395672 R53.83 Anxiety 20699692 F41.9 Patient does have issues with anxiety but manages it well without medication s. Right uppe r quadrant pain 916555204 R10.11 [id number] Jose Dennis MD [facility] ([facility]) [address] [place] [phone] 07/24/2024 10:21:33 07/24/2024 11:19:24 Dyspnea 067670734 R06.00 No significan t obvious cause noted on exam today. Will attempt to get a spirometry today. Intermitte nt palpitations 075223847 R00.2 EKG was obtained and showed normal sinus rhythm with no concerns. Vitamin D deficiency 347 61238 E55.9 The [facility] will [facility] levels today. Iron defic iency anemia 73393980 D50.9 Patient does have a history of iron deficiency so we will check for anemia as this may be contributi ng to the patient's symptoms. [id number] Jose Dennis MD [facility] ([facility]) [address] [place] [phone] 11/11/2024 12:40:54 11/11/2024 13:22:23 Gastrointestinal hemorrhage 21156881 K62.5 Hasmukh the potential causes for this and is likely to be internal hemorrhoid s. Although the patient does have significan t concerns about potential causes. The patient has noticed mucus movement of the blood and given her history of bowel issues in the past, inflammato ry bowel disease is still on that differenti al. Barton to be cancer, however is still something that needs to be considered . Commend that the patient go ahead and proceed with endoscopy to evaluate this further. Patient is unsure if she would like to go that route that she may try to treat hemorrhoid s conservati vely and see if this improves. Patient will notify the clinic of her decision on what direction she would like to go. Health Concerns Section Related Observation LastModified by Organization Detai ls LastModified Time None Recorded Concern Status LastModified by Organization Details LastModified Time None Recorded Advance Directives Directive N: Payers Insurance Date Sequence Insurance Name Policy Number Policy Nicholas Covered Member ID Nicholas Member ID Guarantor Name 07/24/2024 [facility] (MEDICAID HMO) Blanca Steinberger [id number] Blanca Lai 07/16/2024 1 [facility] (MEDICAID HMO) Blanca Steinberger [id number] Blanca Lai 11/16/2024 1 [facility] Johan Joelle [id number] Blanca Lai 07/24/2024 1 *SELF PAY* Cr yscari Jha Joelle Notes Date Note Type Note Provider Name and Address Organization Details Recorded Time 05/19/2024 text/html This is a 34-year-old female that comes in today to establish care and to discuss acute concerns. Patient states that she has been having random hot and cold sensations on her face and neck. Patient recently underwent evaluation with general lab work and it was normal. Patient is also concerned about significant fatigue. Patient also has been complaining of upper abdominal pain. Patient states that abdominal pain has been chronic over the last 2 years. The patient had an EGD and it was essentially normal with possible mild gastritis. The patient is concerned about her gallbladder. Jose Dennis MD [address] [place] [address], [phone], [facility] 05/21/2024 09:00:38 07/24/2024 text/html Pt is here for S OB. Pt states that she is not having a cough, just cannot take a deep breath. Pt denies any wheezing or tightness. Patient denies any history of lung disease. Patient states that she does have palpitations sometimes with these symptoms. Patient has a history of iron deficiency. Jose Dennis MD [address] [place] [address], [phone], [facility] 07/26/2024 13:11:40 11/11/2024 text/html This is a 34-year-old female that comes in today to discuss bright red blood per rectum. Patient states that she saw blood when she had a bowel movement and has gotten progressively worse over the last few days. She denies any significant pain. The patient states that she is not having any difficulty with bowel movements but she has had issues with constipation and diarrhea previously. Patient denies any significant family history of colon cancer except for her grandfather who was diagnosed in his 70s. Jose Dennis MD [address] [place] [address], [phone], [facility] Lenny Tenorio 11/12/2024 18:35:16 OBGyn Episode No OBEpisode recorded.
--- OUTSIDE RECORDS SUMMARY | 2025-01-11 10:32 | XMS_ITS | Data Portability ---
Author Organization [facility], [facility] Address [address] [place] [address] Care Team Providers Care Tube Builder Airplane Name Role Phone YASMIN KEVIN Referring Provider Assessment No assessment recorded. Plan of Treatment Reminders Order Date Submit Date Provider Last Modified By Organization Details Last Modified Time Details Appointments None record ed. Lab None record ed. Referral None record ed. Procedures None record ed. Surgeries None record ed. Imaging None record ed. Medication Orders None record ed. Patient TargetsNo targets recorded. Patient InstructionsNo instructions recorded. Reason for Referral None Reported. Procedures Surgical History Date Name Laterality Status Provider Name and Address Organization Details Recorded Time 02/29/20 screening for malignant neoplasm of cervix completed Penny Davis [facility] 04/30/2022 14:16:54 Appendectomy completed Lorena Sandoval [facility] 04/30/2022 15:40:36 Imaging Results None recorded. Procedure Notes None recorded. Medical Equipment None Reported. Allergies Allergen ID Allergen Name Allergen Category Reaction Reaction Severity Criticality Documentation Date Start Date Code Code System Note Provider Name and Address Organization Details Recorded Time [id number] Substance with sulfonami de structure and antibacte rial mechanism of action (substanc e) medicatio n rash Not available Not available 04/30/2022 [id number] SNOMED Lorena Sandoval [facility] 15:40:35 Medications Name Sig Start Date Stop Date Status Note LastModified by Organization Details LastModified Time phenazopyri dine 200 mg tablet TAKE 1 TABLET BY MOUTH THREE TIMES DAILY NEEDED FOR PAIN active Not Available Not Available No t Available clonazepam 0.5 mg tablet TAKE 1/2 TO 1 (ONE-HALF TO ONE) TABLET BY MOUTH TWICE DAILY NEEDED FOR SEVERE ANXIETY active Not Available Not Available No t Available propranolol 10 mg tablet TAKE 1/2 TO 1 (ONE-HALF TO ONE) TABLET BY MOUTH THREE TIMES DAILY NEEDED FOR ANXIETY active Not Available Not Available No t Available diazepam 2 mg tablet TAKE ONE TABLET BY MOUTH ONE TIME NEEDED FOR ANXIETY active Not Available Not Available No t Available cephalexin 500 mg capsule TAKE 1 CAPSULE BY MOUTH TWICE DAILY FOR 7 DAYS active Not Available Not Available No t Available escitalopra m 10 mg tablet TAKE 1 TABLET BY MOUTH ONCE DAILY STARTING AT WEEK 5 OF TITRATION 05/28 completed Not Available Not Available Not Available escitalopra m 5 mg tablet TAKE 1/2 (ONE-HALF ) TABLET BY MOUTH AT BEDTIME FOR 7 DAYS, THEN INCREASE TO 1 TABLET BY MOUTH FOR 2 WEEKS. CAN INCREASE TO 10 MG DOSE IF DESIRED AT WEEK 5 OF TITRATION active Not Available Not Available No t Available nitrofurant oin monohydrate /macrocryst als 100 mg capsule TAKE 1 CAPSULE BY MOUTH TWICE DAILY FOR 7 DAYS active Not Available Not Available No t Available multivitami n active Not Available Not Available Not Available Narcan 4 mg/actuatio n nasal spray TAKE 2 SPRAYS NEEDED BY NASAL ROUTE FOR OPIATE/BE NZO OVERDOSE active Not Available Not Available No t Available ID NOW COVID-19 Test Kit TEST DIRECTED TODAY 04/30 completed Not Available Not Available Not Available Vitals None Recorded Social History Question Answer Notes LastModified by Organizat ion Details LastModified Time Tobacco Smoking Status Former Smoker Lorena simmons, [facility] - [facility], [facility] 04/30/2022 15:40:36 Do You Have An Advance Directive? No [email or web address] Information not available 04/30/2022 Is Blood Transfusion Acceptable In An Emergency? Yes [place] [address] Information not available 04/30/2022 What Is Your Level Of Caffeine Consumption? None [place] [address] Information not available 04/30/2022 What Type Of Diet Are You Following? REGULAR [place] [address] Information not available 04/30/2022 What Is The Highest Grade Or Level Of School You Have Completed Or The Highest Degree You Have Received? [id number] [place] [address] Information not available 04/30/2022 What Was The Date Of Your Most Recent Tobacco Screening? 04/30/2022 [place] [address] Information not available 04/30/2022 What Is Your Relationship Status? [place] [address] Information not available 04/30/2022 Are You Sexually Active? Yes [place] [address] Information not available 04/30/2022 Sex: Female Functional Status Question Answer Note LastModified by Organizat ion Details LastModified Time What is your level of alcohol consumption? None [place] [address] Information not available 04/30/2022 Do you or have you ever used smokeless tobacco? Never used smokeless tobacco [place] [address] Information not available 04/30/2022 What is your exercise level? Occasional [place] [address] Information not available 04/30/2022 Mental Status None recorded. Family History Relationship Description Onset Age of this Age Resolved Age Notes LastModified by Organization Details LastModified Time Father Anxiety [place] [address] Not available 04/30/2022 15:40:35 Maternal Grandfather Heart disease [place] [address] Not available 2021 15:40:35 Medical History No medical history recorded. Gynecological History Statement/Question Response Abnormal Pap N Flow Heavy Date of LMP 03/27/2022 Menses Monthly Y STIs/STDs N Duration of Flow (days) 5 days Current Control Method Condoms Age at Menarche 13 Age at First Child 18 Obstetrics History GPAL:G 0 P 0 0 0 0 Past Encounters Encounter ID Performer Location Encounter Start Date Encounter Closed Date Diagnosis/Indication Diagnosis SNOMED-CT Code Diagnosis ICD10 Code Diagnosis Note [id number] MD WALESKA Herrera [facility] [address] [facility] [address] [facility] [address] [place] [address] 04/30/2022 12:26:51 05/01/2022 10:29:02 Nonulcer dyspepsia 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 [address] [facility],[address] [place] [address] 01/22/2024 11:54:49 01/22/2024 14:43:36 COVID-19 391768966 U07.1 suboptimal control, adjust treatment as directed, follow up as needed [id number] Kevin Mesa MD [facility] [address] [facility] [address] [facility] [address] [place] [address] 05/28/2024 11:15:13 05/28/2024 13:24:07 Generalized anxiety disorder 17534351 F41.1 suboptimal control, adjust treatment as directed, follow up as needed Health Concerns Section Related Observation LastModified by Organization Detai ls LastModified Time None Recorded Concern Status LastModified by Organization Details LastModified Time None Recorded Advance Directives Directive N: Payers Insurance Date Sequence Insurance Name Policy Number Policy Nicholas Covered Member ID Nicholas Member ID Guarantor Name 05/28/2024 1 [facility] Randall Pereira MD [facility] Johan Coomer [id number] Crystal Coomer 06/18/2024 1 [employer] Crystal Coomer [id number] Crystal Coomer 06/18/2024 2 [employer] Crystal Coomer [id number] Crystal Coomer Notes Date Note Type Note Provider Name and Address Organization Details Recorded Time 04/30/2022 text/html Abdominal PainReported bypatient.Notes:For 2 years now diarrhea and constipation alternating with bloating and distended abdomen after almost any foodGI Complaint*Reported bypatient.Reason for visit:continued care of chronic complaint GI Complaint*:GERD Gastrointestinal symptoms:bloating;hea rtburn / reflux Severity:moderate; unchanged Duration:intermittent Onset/Timing:gradual Context:food Alleviating FactorsOTC Rx; prescription Rx Aggravating Factors:laying down Associated Symptoms:no fever; no shortness of breath; no red blood stool This visit was conducted via our telehealth video visit service. Provider location: in office Patient location: at home address on file Visit Participants in addition to provider and patient: none Patient has given verbal consent to telehealth visit. Kevin Mesa MD [address] [address], [place], [address], [facility] - [facility], [facility] 04/30/2022 16:22:58 01/22/2024 text/html Cough / ColdRepo rted bypatient.Reason for visit:acute complaint Quality:productive Sputum Quality:yellow Severity:unchanged Duration:constant Onset/Timing:gradual Alleviating factors:cough syrup; rest Associated Symptoms:post nasal drip; no shortness of breath This visit was conducted via our telehealth video visit service. Provider location: in office Patient location: at home address on file Visit Participants in addition to provider and patient: none Patient has given verbal consent to telehealth visit. Kevin Mesa MD [address], [place], [address], [facility] [employer] [facility] 01/22/2024 13:12:42 05/28/2024 text/html AnxietyReported bypatient.Reason for visit:continued care of chronic complaint Anxiety Type:generalized anxiety disorder Quality:pent up;unable to sleep;poor concentration Severity:moderate; unchanged Duration:intermittent Onset/Timing:gradual Context:major life stressors Alleviating factors:medication; better diet; increased sleep; exercise; stress management Aggravating factors:stress Associated Symptoms:denies suicidal ideations; no shortness of breath; appetite good;high irritability;sleep disturbances;decrease d effectiveness/product ivity This visit was conducted via our telehealth video visit service. Provider location: in office Patient location: at home address on file Visit Participants in addition to provider and patient: none Patient has given verbal consent to telehealth visit. Kevin Mesa MD [address], [place], [address], [facility] [employer] [facility] 05/28/2024 11:51:08 OBGyn Episode No OBEpisode recorded.
--- OUTSIDE RECORDS SUMMARY | 2025-01-11 10:32 | XMS_ITS | Clinical Summary ---
Author Organization [facility] Address [address] [facility] Attn: Epic Prelude ADT LYNNETTE BISHOP [address] Care Team Providers Care Care Technician Name Role Phone Unavailable Primary Care Provider Unavailabl e Allergies Active Allergy Reactions Criticality Noted Date Comments Iodinated Contrast Media Hives,Rash High 01/14/2012 Morphine Rash Low 05/15/2012 Sulfa (Sulfonamide Antibiotics) Rash Low 10/06 Medications multivitamin (DAILY-VIDYA) tablet Take 1 Tablet by mouth daily. 1 Active Simethicone 125 mg Tablet Dispense (3) 125 mg Simethicone chewable tablets with prep as directed. 3 Tablet 5 Active PEG-Electrolyte Soln (NULYTELY) 420 g Recon Soln Take 4,000 mL by mouth one time only for 1 dose. 4000 mL 5 12/23/19 25 Active Problems Problem Noted Date Diagnosed Date Blood in stool 11/23/2024 Change in bowel habits 11/23/2024 Dyspnea 07/23/2024 Intermittent palpitations 07/23/2024 Iron deficiency anemia 07/23/2024 Paresthesia 05/18/2024 Right upper quadrant pain 05/18/2024 Generalized postprandial abdominal pain 12/23/19 24 Postprandial diarrhea 12/23/2023 Vitamin D deficiency 02/27/2016 Anxiety 02/27/2016 Fatigue 08/23/2015 Family history of malignant melanoma of skin Encounters Date Type Department Care Team Description 01/11/2025 Telephone [facility] Gastroenterology[address] [place] [address] Carlos Chawla, DO Abdominal Pain 01/07/2025 10:39 AM CDT Anesthesia Event [facility] Endoscopy [address] [place] [address] Kolton Lebron MD 01/07/2025 9:20 AM CDT - 01/07/2025 9:40 AM CDT Surgery [facility] Endoscopy [address] [place] [address] Carlos Chawla, DO COLONOSCOPY 01/07/2025 9:18 AM CDT - 01/07/2025 11:31 AM CDT Hospital Encounter [facility] Endoscopy [address] [place] [address] Carlos Chawla, DO Discharge Disposition: Home or Self Care 12/31/[address] [address] Carlos Chawla, DO Documentation Only 12/08/2024 External Device Data STL ABSTRACTION Provider, Abstract 11/25/2024 External Device Data STL ABSTRACTION Provider, Abstract 11/24/2024 External Device Data STL ABSTRACTION Provider, Abstract 11/23/2024 9:30 AM CDT Office Visit [address] [address] Edna Stoner FNP Blood in stool (Primary Dx); Change in bowel habits 11/18/2024 Orders Only [facility] [address] [place] [address] [place] [phone] Penny Do FNP Bloody stool (Primary Dx) 11/12/2024 Telephone [facility] [address] [place] [address] [place] [phone] Penny Do FNP Advice Only 11/04/2024 10:40 AM CDT Office Visit [facility] Letitia Fields [address] [facility] [address] [place] [address] L[place]NNETTE MATTHEWS [address] Penny Do FNP Bloody stool (Primary Dx); Ocular myasthenia gravis (CMS/HCC) from Last 3 Months Immunizations Immunization Administration Dates Next Due (PFIZER)(12 YR UP) COVID-19 VACCINE - EMERGENCY USE AUTHORIZATION, MRNA, [id number](PF) 30 MCG/0.3 ML IM SUSP 03/20/2021,02/17/2021 Influenza Seasonal Unspecified Formulation IM Influenza Virus Vaccine, Spl it Virus (Incl. Purified Surface antigen)-retired CODE 06/13/2009 Family History Medical History Relation Name Comments Healthy Father Jame guerrero Heart Disease Maternal Grandfather Jayden kaur Cancer Maternal Grandmother Marcie kaur skin ca ncer Heart Disease Maternal Grandmother Marcie kaur Healthy Mother Waylon kaur Breast Cancer Other 1 pggm Cancer Paternal Grandfather Darrin guerrero rectal cancer Colon Cancer Neg Hx Relation Name Status Comments Father Jame guerrero Alive Maternal Grandfather Jayden kaur Maternal Grandmother Marcie kaur Mother Waylon kaur Alive Other 1 pggm Alive Other 2 m Alive Paternal Grandfather Darrin guerrero Social History Tobacco Use Types Packs/Day Years Used Date Smoking Tobacco: Former Cigarettes Q uit: 07/08/2007 Smokeless Tobacco: Never Tobacco Cessation:Counseling Given: No Alcohol Use Standard Drinks/Week Comments No 0 (1 standard drink = 0.6 oz pur e alcohol) Feeling Safe Answer Date Recorded Are you in a relationship wi th someone who hurts you emotionally and/or physically? No 01/07/2025 Comments No Sex and Gender Information Value Date Recorded Sex Assigned at Not on file Legal Sex Female 2:19 AM [employer] SUPER[employer] Gender Identity Not on file Sexual Orientation Not on file Last Filed Vital Signs Vital Sign Reading [...] Mass Index 22.86 12/22/2024 4:11 PM CDT Plan of Treatment Upcoming Encounters Date Type Department Care Team (Late st Contact Info) Description 02/08/2025 10:15 AM CDT Office Visit [facility] Neurology [address] [place] [id number] [place] [phone] [place] [address] [address] 02/23/2025 2:30 PM CDT Office Visit [facility] Gastroenterology- [place] [address] [facility] [address] [place] [address] Edna Stoner, [facility] [address] [facility] [address] [place] [address] 04/01/2025 2:30 PM CDT Appointment [facility] Neurology [facility] [address] [place] [address] Veto Lipscomb MD [address] [place] [address] Health Maintenance Due Date Last Done Comments DTAP/TDAP/TD VACCINES (1 - Tdap) 01/04/2008 HEPATITIS B VACCINES (1 of 3 - 19+ 3-dose series) 01/04/2008 PAP SMEAR 04/04/2020 04/04/2017, 04/04/2017 CERVICAL CANCER SCREENING 04/04/2022 HPV/Cotest (21-29) 04/04/2022 04/04/2017 HPV/Cotest (30-65) 04/04/2022 04/04/2017 COVID-19 Vaccine ( - 2023- season) 2024 03/20/2021, 02/17/2021 Preventative Visit- Commercial 07/08/2024 04/04/2017 INFLUENZA VACCINE (#1) 2025 , 03/23/2024, 05/01/2023, Additional history exists HPV VACCINES Aged Out No longer eligi ble based on patient's age to complete this topic Procedures Procedure Name Priority Date/Time Associated Diagnosis Comments COLONOSCOPY REPORT 01/07/2025 10 :57 AM CDT POC , URINE Routine 01/07/2025 10:12 AM CDT DC COLONOSCOPY FLX DX W/COLLJ SPEC WHEN PFRMD 01/07/2025 9:20 AM CDT Blood in stool Change in bowel habits Case Notes Procedure :COLON Special Notes: MIRALAX PREP PER EDNA STONER Dx: Blood in stool, Change in bowel habits BT:NONE Diabetic: NO Diabetic/WT med:NONE LOC & REASON: HOSP - DUE TO SEDATION RISK BMI: 23.2 Last Procedure date & location Referring Provider: EDNA STONER GI Doc:Dr Carlos Chawla Insurance: [employer] CERV/VAG CYTO SCREEN PAP RLFX HPV Routine 04/04/2017 10:05 AM CDT from Last 3 Months or Most Recently Relevant to Health Maintenance Results * COLONOSCOPY REPORT (01/07/2025 10:57 AM CDT) Narrative Procedure Note Carlos Chawla DO - 01/07/2025 10:57 AM CDT [facility] GI Patient Name: Blanca Lai Procedure Date: [...] Scope Out: 10:54:25 AM [address] [place], [place] Carlos Chawla DO GI PROCEDURE ORDERABLES Final Result * POC , URINE (01/07/2025 10:12 AM CDT) HCG QUAL URINE Negative Negative 01/07/2025 10:[address] [facility] [employer] [facility] Urine 01/07/2025 10:1 2 AM CDT 01/07/2025 10:11 AM CDT Narrative [facility] - 01/07/2025 10:12 AM CDT Positive : Result is greater than or equal to 25 mIU/mL Negative: Result is less than 25 mIU/mL Invalid: Result is borderline or indeterminate,send to lab for serum test methodology. Carlos Chawla DO POINT OF CARE TESTING F inal Result [facility] # [id number] [address] [address] [place] [address] * CERV/VAG CYTO SCREEN PAP RLFX HPV (04/04/2017 10:05 AM CDT) CLINICAL INFORMATION SEE COMMENT 04/09/2017 10:59 AM CDT [facility] Comment:Routine exam LAST MENSTRUAL PERIOD [id number]/09/2017 10:59 AM CDT [facility] PREV PAP: NIL 04/09/2017 10:59 AM CDT [facility] PREV BX: SEE COMMENT 04/09/2017 10:59 AM CDT [facility] Comment:INFORMATION NOT PROV IDED SOURCE End[employer]ix 04/09/2017 10:59 AM CDT [facility] ADEQUACY: SEE COMMENT 04/09/2017 10:59 AM CDT [facility] Comment: Satisfactory for evaluation. Endocervical/transformation zone component present. PAP INTERP SEE COMMENT 04/09/2017 10:59 AM CDT [facility] Comment:Negative for intraep ithelial lesion or malignancy. COMMENT SEE COMMENT 04/09/2017 10:59 AM CDT [facility] Comment: This Pap test has been evaluated with computer assisted technology. STALLION KEEPER: SEE COMMENT 2016 10:59 AM CDT [facility] Comment: TMK, CT(ASCP) CT screening location: [employer] [address] [address] [address] L[place]NNETTE Roque [address] Genital SWAB OF ENDOCERVIX / Unknown Collection / Unknown 04/04/2017 10:05 AM CDT 04/08/2017 6:12 AM CDT Narrative [facility] - 04/09/2017 10:59 AM CDT Performing Organization Information: Site ID: SL Name: [facility] [facility] Address: [address] [place] [address] Director: Clayton Murphy MD Kayleen Roman CREATIVE WRITER PATHOLOGY/CYTOLOG Y ORDERABLES Final Result [facility] from Last 3 Months or Most Recently Relevant to Health Maintenance Insurance [employer] PRACTITIONER ONLY
--- OUTSIDE RECORDS SUMMARY | 2025-01-11 10:33 | XMS_ITS | Clinical Summary ---
Author Organization [facility] [address] [facility] Address [address] [place] [address] Care Team Providers Care Fish Salter Name Role Phone David Abdul MD Primary Care Provider [phone] Allergies Active Allergy Reactions Criticality Noted Date Comments Iodinated Contrast Media Hives High 01/14/2012 Morphine Rash Low 05/15/2012 Sulfa (Sulfonamide Antibiotics) Rash Low 10/06 Medications multivitamin (DAILY-VIDYA) tablet Take 1 Tablet by mouth daily. Active Active Problems Problem Noted Date Diagnosed Date Vitamin D deficiency 02/27/2016 Anxiety state 02/27/2016 Malaise and fatigue 08/23/2015 Family history of malignant melanoma of skin Family History Medical History Relation Name Comments Healthy Father Heart Disease Maternal Grandfather Cancer Maternal Grandmother skin ca ncer Heart Disease Maternal Grandmother Healthy Mother Breast Cancer Other 1 pggm Cancer Paternal Grandfather rectal cancer Colon Cancer Neg Hx Relation Name Status Comments Father Alive Maternal Grandfather Maternal Grandmother Mother Alive Other 1 pggm Alive Other 2 m Alive Paternal Grandfather Social History Tobacco Use Types Packs/Day Years Used Date Smoking Tobacco: Former Cigarettes Q uit: 07/08/2007 Smokeless Tobacco: Never Alcohol Use Standard Drinks/Week Comments No 0 (1 standard drink = 0.6 oz pur e alcohol) Comments No Sex and Gender Information Value Date Recorded Sex Assigned at Not on file Legal Sex Female 7:00 AM SOLUTION SPEC Gender Identity Not on file Sexual Orientation Not on file Occupation Industry Job Start Date Job End Date Not on file Not on file Not on file Not on file Not on file Not on file Not on file Not on file Not on file Not on file Not on file Not on file Last Filed Vital Signs Vital Sign Reading Time Taken Comments Blood Pressure 92/60 08/09/2020 4:03 PM SOLUTION SPEC Pulse 72 08/09/2020 4:03 PM SOLUTION SPEC Temperature 36.6 C (97.9 F) 08/09/2020 4:03 PM SOLUTION SPEC Respiratory Rate 12 08/09/2020 4:03 PM SOLUTION SPEC Oxygen Saturation 99% 08/09/2020 4:03 PM SOLUTION SPEC Inhaled Oxygen Concentration - - Weight 64 kg (141 lb 3.2 oz) 08/09/2020 4:03 PM SOLUTION SPEC Height 157.5 cm (5' 2 ) 08/09/2020 4:03 PM SOLUTION SPEC Body Mass Index 25.83 08/09/2020 4:03 PM SOLUTION SPEC Plan of Treatment Health Maintenance Due Date Last Done Comments DTAP/TDAP/TD VACCINES (1 - Tdap) 01/04/2008 HEPATITIS B VACCINES (1 of 3 - 19+ 3-dose series) 01/04/2008 Preventative Visit-Managed Medicaid 04/05/2018 04/04/2017 PAP SMEAR 04/04/2020 04/04/2017 CERVICAL CANCER SCREENING 04/04/2022 HPV/Cotest (21-29) 04/04/2022 04/04/2017 HPV/Cotest (30-65) 04/04/2022 04/04/2017 INFLUENZA VACCINE (#1) 2025 0, 06/20/2020, 08/21/2019, Additional history exists HPV VACCINES Aged Out No longer eligi ble based on patient's age to complete this topic Procedures Procedure Name Priority Date/Time Associated Diagnosis Comments CERV/VAG CYTO SCREEN PAP RLFX HPV Routine 04/04/2017 10:05 AM CDT Well woman exam with routine gynecological exam from Last 3 Months or Most Recently Relevant to Health Maintenance Results * CERV/VAG CYTOPATH, THIN PREP IMAGR RFLX HPV (04/04/2017 10:05 AM CDT) CLINICAL INFORMATION SEE COMMENT 04/09/2017 10:59 AM CDT [facility] Comment:Routine exam LAST MENSTRUAL PERIOD 2017032704/09/2017 10:59 AM CDT [facility] PREV PAP: NIL 04/09/2017 10:59 AM CDT [facility] PREV BX: SEE COMMENT 04/09/2017 10:59 AM CDT [facility] Comment:INFORMATION NOT PROV IDED SOURCE Endocervix 04/09/2017 10:59 AM CDT [facility] ADEQUACY: SEE COMMENT 04/09/2017 10:59 AM CDT [facility] Comment: Satisfactory for evaluation. Endocervical/transformation zone component present. PAP INTERP SEE COMMENT 04/09/2017 10:59 AM CDT [facility] Comment:Negative for intraep ithelial lesion or malignancy. COMMENT SEE COMMENT 04/09/2017 10:59 AM CDT [facility] Comment: This Pap test has been evaluated with computer assisted technology. HOOP MAKER: SEE COMMENT 2016 10:59 AM CDT [facility] Comment: TMK, CT(ASCP) CT screening location: [place] [address] Administration [place]que [address] Genital SWAB OF ENDOCERVIX / Unknown Collection / Unknown 04/04/2017 10:05 AM CDT 04/05/2017 7:13 AM CDT Narrative [facility] - 04/09/2017 10:59 AM CDT Performing Organization Information: Site ID: Name: [facility] Address: [facility] Administration [place] [address] Director: Clayton Murphy MD Kayleen Roman MANAGER PERSONNEL SELECTION PATHOLOGY/CYTOLOG Y ORDERABLES Final Result [facility] from Last 3 Months or Most Recently Relevant to Health Maintenance [place] [address] [place] [address] [employer] Care Teams Fish Salter Relationship Specialty Start Date End Date David Abdul MD [address] [phone] PCP - General Family Practice 05/20/19
--- OUTSIDE RECORDS SUMMARY | 2025-01-11 10:33 | XMS_ITS | Encounter Summary ---
Author Organization [facility] Address [address] [place] [address] Care Team Providers Care Junior Analyst Name Role Phone Unavailable Primary Care Provider Unavailabl e Reason for Visit * Reason Onset Date Comments Abdominal Pain 01/11/2025 Encounter Details Date Type Department Care Team (Late st Contact Info) Description 01/11/2025 Telephone [facility] G[facility]enterology- [place] 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 She continues to have bloody mucus diarrhea, and a fever of 99.6. Colonoscopy on 07/03/25. Advised to go to ED to be evaluated. She agreed documented in this encounter Plan of Treatment Upcoming Encounters Date Type Department Care Team (Late st Contact Info) Description 02/08/2025 10:15 AM CDT Office Visit [facility] Neurology [address] [facility] [address] [address] [place] [address] [address] 02/23/2025 2:30 PM CDT Office Visit [facility] [place] [address] [address] Mary Jane Rodriguez FNP [address] [address] 04/01/2025 2:30 PM CDT Appointment [facility] Neurology [facility] [address] [place] [address] Veto Lipscomb MD [address] [place] [phone] documented as of this encounter Visit Diagnoses Not on filedocumented in this encounter
--- OUTSIDE RECORDS SUMMARY | 2025-01-11 10:33 | XMS_ITS | Encounter Summary ---
Author Organization [facility] Address [address] [place] [address] Care Team Providers Care Technician Support Engineer Name Role Phone David Abdul MD Primary Care Provider [phone] Encounter Details Date Type Department Care Team (Latest Contact Info) Description 01/19/2008 Outpatient Historical [facility] Medicine- [address] [address] Archie Hernandez MD [facility] [place] [address] Supervision of Other Normal Social History Tobacco Use Types Packs/Day Years Used Date Smoking Tobacco: Never Assessed Comments No Sex and Gender Information Value Date Recorded Sex Assigned at Not on file 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 Gender Identity Not on file Sexual Orientation Not on file documented as of this encounter Plan of Treatment Not on file documented as of this encounter Procedures Procedure Name Priority Date/Time Associated Diagnosis Comments GC, GENITAL Routine 01/19/2008 12:07 PM CDT CHLAMYDIA, GENITAL Routine 01/19/2008 12 :07 PM CDT PATHOLOGY Routine 01/19/2008 8:38 AM CDT HPV HIGH RISK DNA DETECTION Routine 01/19/2008 7:04 AM CDT documented in this encounter Results * GC DNA AMPLIFICATION (01/19/2008 12:07 PM CDT) FINAL REPORT DNA Amplification Assay: negative for Neisseria gonorrhoeae This procedure is approved for testing only on endocervical and male urethral swab specimens and male urine. The use of specimens from any other body site has not been validated. INTERFACE SYSTEM Specimen from genital system (specimen) CERVIX UTERI STRUCTURE / Unknown 01/19/2008 12:07 PM CDT 01/20/2008 12:04 PM CDT Archie Hernandez MD MICROBIOLOGY - GENERAL ORDERA EMIL Final Result Performing Organization Address City/[facility] de Phone Number INTERFACE SYSTEM Refer to clinic/hospital department * CHLAMYDIA DNA AMPLIFICATION (01/19/2008 12:07 PM CDT) FINAL REPORT DNA Amplification Assay: negative for Chlamydia trachomatis * This procedure is approved for testing only on endocervical and male urethral swab specimens and urine. The use of specimens from any other body site has not been validated. INTERFACE SYSTEM Specimen from genital system (specimen) CERVIX UTERI STRUCTURE / Unknown 01/19/2008 12:07 PM CDT 01/20/2008 12:04 PM CDT Archie Hernandez MD MICROBIOLOGY - GENERAL STEPHANIE STEIN Final Result Performing Organization Address City/[facility]/ZIP Co de Phone Number INTERFACE SYSTEM Refer to clinic/hospital department * PATHOLOGY (01/19/2008 8:38 AM CDT) PATHOLOGY/CY TOLOGY REPORT [facility] Anatomic Pathology Dept [address] [facility] [address] Patient: BLANCA GUERRERO Accn No: [id number] Collected: 01/19/2008 8:38:00 AM CYTOLOGY MOTOR VEHICLE REPRESENTATIVE FINAL REPORT - - ORGANIZATION DEVELOPMENT CONSULTANT PAP History Specimen Source: Endocervical/Cervic al LMP: 09-23-07 Last Pap Date: 2005 WNL Specimen Adequacy Satisfactory for interpretation. The smear shows sufficient numbers of endocervical or metaplastic cells. Diagnosis EPITHELIAL CELL ABNORMALITIES. Atypical squamous cells of undetermined significance (ASC-US). Hearing Aide Technician DD 01/23/08 Completed by: Mohsen Velez M.D. (Electronically signed by) 01/23/08 Comment The most cost effective method for follow-up is HPV testing on the residual vial. See asccp.org for suggested follow-up. Important Info About Pap Smears HPV Testing off the Thin Prep vial can be done as a means of further evaluating a Thin Prep Report. For information about ordering the HPV test, phone Cytology at . Treatment or follow-up recommendations (if any) that are considered within this report are based upon general recommendations as contained in 2001 Consensus Guidelines For Cervical Cytological Abnormalities KARINA: October 29, 2001, and are provided as a general guideline rather than as a specific recommendation. Final decisions about the most appropriate treatment and follow-up should be made on an individualized basis by the treating physician in consultation with his/her patient. CYTOLOGY ADDENDUM REPORT Discussion Residual specimen was tested at [facility] for high risk HPV (human papillomavirus) DNA on 01/28/2008. (Testing for low risk HPV DNA types is not performed as part of this analysis). THIN PREP DIAGNOSIS: ASCUS Addendum Diagnosis HPV DIAGNOSIS: NEGATIVE FOR HIGH RISK HPV DNA Ventura López M.D. (Electronically signed by) Verified: 02/03/08 SEC/WLS INTERFACE SYSTEM 01/19/2008 8:38 AM CDT Archie Hernandez MD PATHOLOGY/CYTOLOGY ORDERABLES Edited INTERFACE SYSTEM Refer to clinic/hospital department * HPV HIGH RISK DNA DETECTION (01/19/2008 7:04 AM CDT) FINAL REPORT HPV High Risk DNA: Not Detected . Testing by the FDA Approved Coinapultene Hybrid Capture II method failed to detect the presence of any of the following high-risk HPV types (16,18,31,33, 35,39,45,51,5 2,56,58,59,68 ). High-risk HPV DNA sequences are either absent or the HPV solution DNA levels are below the detection limit of the assay. This test does not evaluate for the presence of low-risk types of HPV. 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
--- OUTSIDE RECORDS SUMMARY | 2025-01-11 10:33 | XMS_ITS | Data Portability ---
Author Organization [place] [facility] [place], ADMIN Address [address] [place] [id number] Assessment Encounter Date Assessment Date Assessment LastModified by Organization Details LastModified Time 09/30/2020 09/30/2020 This is a 30-year-old female who presents in consultation for evaluation of left upper quadrant on pain. Patient reports a one-year history of left upper quadrant abdominal pain post per new bloating and feeling of something stuck in her stomach. The patient reported having diarrhea which resolved approximately 6 months ago. She has early satiety. She reports no pyrosis. She reports no previous EGD and colonoscopy. The patient had an appendectomy in past. She is a non-smoker and nondrinker. She reports that her paternal grandfather had colon cancer in his 60s. She denies fever chills night sweats. On examination she was tender to the midepigastric and bilateral lower abdominal regions. No perineal signs were identified. Laboratory studies from 08/30/2020 revealed a lipase of 39 amylase 54 sodium 138, potassium 3.8, chloride 103, CO2 25, calcium 9.7, BUN 11, creatinine 0.5, glucose 117, albumin 4.3, bilirubin 0.3, alk phos 71, AST 15, ALT 16, W BC 6.1, hemoglobin 12.1, hematocrit 36.7, MCV 76.9, platelets 251. Transabdominal ultrasound 2020 revealed normal liver, gallbladder, bile duct system, spleen no ascites. Impression: 1. Left upper quadrant pain 1 year; negative gallbladder ultrasound. 2. Early satiety 3. Change in bowel habit without explain diarrhea 4. Family history of colon cancer in paternal grandfather in his 60s Recommendations: 1. Schedule EGD and colonoscopy 2. Routine laboratory studies 3. Consider CT scan for. Consider gastric empty time if symptoms continue 4. Avoid NSAIDs 5. Follow-up in 2 weeks for clinical reassessment Patient presents to clinic for urgent/non-urgent outpatient visit. Patient denies any symptoms of fever, cough, shortness of breath, close contact with a person known to have COVID-19 (aka Coronavirus) and denies recent travel to an area with ongoing spread of COVID-19 (aka Coronavirus). Educated patient on potential risks of visit which could lead to potential exposure to COVID-19 (aka Coronavirus). Patient verbalized understanding and accepts the potential risks and responsibilities of possible exposure to COVID-19 (aka Coronavirus). Patient is being scheduled for urgent/non-urgent procedure and is aware of the increased potential exposure to COVID-19 (aka Coronavirus). Educated patient to perform hand hygiene on exit from the exam room. Patient verbalized understanding. Chandler Weathers, hereby attest I personally performed and dictated the services documented in the History of Present Illness, Physical Exam, Assessment and Plan, and agree the documentation accurately represents these services and the decisions I made. I also reviewed the documented the Past, Family, and Social History and made changes and/or additions as needed. Dr. Chandler Stevens M.D. I, Audrey Cardenas, acting as scribe for Dr. Chandler Stevens, to document his verbalization of the History of Present Illness, Physical Exam, Assessment and Plan. Audrey Cardenas, Chief Scribe 09/30/2020, 324 pm samia Not available 09/30/2020 18:58:48 10/20/2020 10/20/2020 This is a 30-year-old female who presents for follow-up. The patient was initially seen for evaluation of left upper quad abdominal pain, altered bowel habits, early satiety and family history of colorectal cancer in her grandfather in his 60s. The patient was initially scheduled for an EGD colonoscopy however the patient called and canceled her colonoscopy. The patient underwent laboratory studies and a EGD. EGD done 10/06/2020 revealed normal follicles and mild gastritis. GE junction biopsy revealed inflamed gastric mucosa, gastric biopsy revealed focal chronic inflammation and small bowel biopsies were normal. Laboratory studies 09/30/2020 revealed sed rate of 6, GFR greater than 60, lipase 137, 12.7, INR 1.1, amylase 50, celiac sprue normal, C-reactive protein less than 0.2, normal TSH 0.683, normal CMP. The patient reports having only one episode of diarrhea several days ago. She reports having continued symptoms dyspepsia. She is taking her meds so 40 mg daily. She only started medication 1 week ago. Laboratory studies from 08/30/2020 revealed a lipase of 39 amylase 54 sodium 138, potassium 3.8, chloride 103, CO2 25, calcium 9.7, BUN 11, creatinine 0.5, glucose 117, albumin 4.3, bilirubin 0.3, alk phos 71, AST 15, ALT 16, W BC 6.1, hemoglobin 12.1, hematocrit 36.7, MCV 76.9, platelets 251. Transabdominal ultrasound 2020 revealed normal liver, gallbladder, bile duct system, spleen no ascites. Impression: 1. Left upper quad abdominal pain. Status post EGD 10/06/2020 revealed no significant findings. Patient on omeprazole 40 mg p.o. daily. Previous transabdominal ultrasound normal. Recent laboratory studies 09/30/2020 with a normal limits. 2. Early satiety 3. Family history of colon cancer in paternal grandfather in his 60s. 4. History of change in bowel habit Recommendations: 1. Continue omeprazole 40 mg p.o. daily 2. Low FODMAP diet 3. Antireflux precautions 4. If symptoms continue consider colonoscopy, CT scan abdomen pelvis and gastric emptying time. 5. Follow-up in 6 weeks. samia Not available 10/20/2020 22:53:43 Plan of Treatment Reminders Order Date Submit Date Provider Last Modified By Organization Details Last Modified Time Details Appointments None recorded . Lab T[facility], serum or plasma 2020 [facility], [address], [place], [address], 19:13:43 CBC w/ auto diff 2020 021 [facility] (Lab)_do Not Use, [address], [place], [address], 19:13:43 CMP, serum or plasma 2020 021 [facility] (Lab)_do Not Use, [address], [place], [address], 19:13:43 lipase, serum or plasma 2020 021 [facility] (Lab)_do Not Use, [address], [place], [address], 19:13:43 amylase, serum or plasma 2020 021 [facility] (Lab)_do Not Use, [address], [place], [address], 19:13:43 ESR (erythro cyte sediment ation rate), blood 2020 [facility] (Lab)_do Not Use, [address], [place], [address], 19:45:22 C-reacti ve protein, quantita tive, serum or plasma 2020 021 [facility] (Lab)_do Not Use, [address], [place], [address], 19:13:43 HLA typing for celiac disease panel, blood - Test Number: [id number] [address] (Lab)_do Not Use, [address], [place], [address], 14:22:56 PT/INR - PT/INR 2020 021 [email or web address] (Lab), [address], [place], [address], 19:13:43 Referral None recorded . Procedures None recorded . Surgeries esophago gastrodu odenosco py (SURG) 2020 021 ANDRESSA [facility], [address], [place], [address], 13:54:08 colonosc opy (SURG) 2020 021 [email or web address] [facility], [address], [place], [address], 12:51:23 Imaging None recorded . Medication Orders Suprep Bowel Prep Kit 17.5 gram-3.1 3 gram-1.6 gram oral solution [address] [facility], [address] [address], [place], [address], 16:16:59 Patient TargetsNo targets recorded. Patient Instructions Encounter Date Encounter Id Patient Instructions Last Modified By Organization Details Last Modified Time 09/30/2020 [id number] diarrhea: care instructions [email or web address] Not available 09/30/2020 19:13:43 Reason for Referral None Reported. Results Created Date Observation Date Name Description Value Unit Range Abnormal Flag Note LastModifiedBy Organization Detail LastModifiedTime 10/01/1909/30/2020 CBC w/ auto diff WBC 4.9 K/uL 4.0-11 .0 Not Available [facility] (Lab)_do Not Use [address], [place], [address], 09/30/2020 17:53:28 10/01/19 21 09/30/2020 CBC w/ auto diff RBC 4.93 M/uL 3.89-5 .20 Not Available [facility] (Lab)_do Not Use [address], [place], [address], 09/30/2020 17:53:28 10/01/19 21 09/30/2020 CBC w/ auto diff HGB 12.6 g/dL 11.7-1 5.7 Not Available [facility] (Lab)_do Not Use [address], [place], [address], 09/30/2020 17:53:28 10/01/19 21 09/30/2020 CBC w/ auto diff HCT 37.8 % 38.0-4 7.0 low Not Available [facility] (Lab)_do Not Use [address], [place], [address], 09/30/2020 17:53:28 10/01/19 21 09/30/2020 CBC w/ auto diff MCV 76.6 fL 81.0-9 8.0 low Not Available [facility] (Lab)_do Not Use [address], [place], [address], 09/30/2020 17:53:28 10/01/19 21 09/30/2020 CBC w/ auto diff MCH 25.4 pg 27.0-3 3.0 low Not Available [facility] (Lab)_do Not Use [address], [place], [address], 09/30/2020 17:53:28 10/01/19 21 09/30/2020 CBC w/ auto diff MCHC 33.2 g/dL 32.0-3 6.0 Not Available [facility] (Lab)_do Not Use [address], [place], [address], 09/30/2020 17:53:28 10/01/19 21 09/30/2020 CBC w/ auto diff RDW 13.6 % 11.5-1 4.5 Not Available [facility] (Lab)_do Not Use [address], [place], [address], 09/30/2020 17:53:28 10/01/19 21 09/30/2020 CBC w/ auto diff MPV 8.2 fL 7.4-10 .4 Not Available [facility] (Lab)_do Not Use [address], [place], [address], 09/30/2020 17:53:28 10/01/19 21 09/30/2020 CBC w/ auto diff platelet count 234 K/uL 150-45 0 Not Available [facility] (Lab)_do Not Use [address], [place], [address], 09/30/2020 17:53:28 10/01/19 21 09/30/2020 CBC w/ auto diff neutrophils 53.4 % 37.0-7 0.0 Not Available [facility] (Lab)_do Not Use [address], [place], [address], 09/30/2020 17:53:28 10/01/19 21 09/30/2020 CBC w/ auto diff lymphocytes 39.1 % 21.0-5 1.0 Not Available [facility] (Lab)_do Not Use [address], [place], [address], 09/30/2020 17:53:28 10/01/19 21 09/30/2020 CBC w/ auto diff monocytes 5.7 % 2.0-9. 0 Not Available [facility] (Lab)_do Not Use [address], [place], [address], 09/30/2020 17:53:28 10/01/19 21 09/30/2020 CBC w/ auto diff eosinophils 1.2 % 0.0-3. 0 Not Available [facility] (Lab)_do Not Use [address], [place], [address], 09/30/2020 17:53:28 10/01/19 21 09/30/2020 CBC w/ auto diff basophils 0.6 % 0.0-1. 0 Not Available [facility] (Lab)_do Not Use [address], [place], [address], 09/30/2020 17:53:28 10/01/19 21 09/30/2020 CBC w/ auto diff absolute neutrophils 2.6 K/uL 2.0-8. 0 Not Available [facility] (Lab)_do Not Use [address], [place], [address], 09/30/2020 17:53:28 10/01/19 21 09/30/2020 CBC w/ auto diff absolute lymphocytes 1.9 K/uL 1.0-5. 5 Not Available [facility] (Lab)_do Not Use [address], [place], [address], 09/30/2020 17:53:28 10/01/19 21 09/30/2020 CBC w/ auto diff absolute monocytes 0.3 K/uL 0.3-0. 8 Not Available [facility] (Lab)_do Not Use [address], [place], [address], 09/30/2020 17:53:28 10/01/19 21 09/30/2020 CBC w/ auto diff absolute eosinophils 0.1 K/uL 0.0-0. 6 Not Available [facility] (Lab)_do Not Use [address], [place], [address], 09/30/2020 17:53:28 10/01/19 21 09/30/2020 CBC w/ auto diff absolute basophils 0.0 K/uL 0.0-0. 3 Not Available [facility] (Lab)_do Not Use [address], [place], [place], [address], 09/30/2020 17:53:28 10/01/19 21 09/30/2020 CMP, serum or plasm a glucose 82 mg/dL 70-110 Not Available [facility] (Lab)_do Not Use [address], [place], [place], [address], 09/30/2020 18:13:51 10/01/19 21 09/30/2020 CMP, serum or plasm a BUN 10 mg/dL 7-18 Not Available [facility] (Lab)_do Not Use [address], [place], [place], [address], 09/30/2020 18:13:51 10/01/19 21 09/30/2020 CMP, serum or plasm a creatinine 0.5 mg/dL 0.5-1. 4 Not Available [facility] (Lab)_do Not Use [address], [place], [place], [address], 09/30/2020 18:13:51 10/01/19 21 09/30/2020 CMP, serum or plasm a calcium 9.0 mg/dL 8.5-10 .1 Not Available [facility] (Lab)_do Not Use [address], [place], [place], [address], 09/30/2020 18:13:51 10/01/19 21 09/30/2020 CMP, serum or plasm a sodium 140 mmol/ L 135-14 8 Not Available [facility] (Lab)_do Not Use [address], [place], [place], [address], 09/30/2020 18:13:51 10/01/19 21 09/30/2020 CMP, serum or plasm a potassium 3.7 mEq/L 3.5-5. 3 Not Available [facility] (Lab)_do Not Use [address], [place], [place], [address], 09/30/2020 18:13:51 10/01/19 21 09/30/2020 CMP, serum or plasm a chloride 103 mmol/ L 95-110 Not Available [facility] (Lab)_do Not Use [address], [place], [place], [address], 09/30/2020 18:13:51 10/01/19 21 09/30/2020 CMP, serum or plasm a CO2 26 mmol/ L 21-34 Not Available [facility] (Lab)_do Not Use [address], [place], [place], [address], 09/30/2020 18:13:51 10/01/19 21 09/30/2020 CMP, serum or plasm a albumin 4.2 g/dL 3.5-5. 0 Not Available [facility] (Lab)_do Not Use [address], [place], [place], [address], 09/30/2020 18:13:51 10/01/19 21 09/30/2020 CMP, serum or plasm a bilirubin 0.3 mg/dL 0.0-1. 0 Not Available [facility] (Lab)_do Not Use [address], [place], [place], [address], 09/30/2020 18:13:51 10/01/19 21 09/30/2020 CMP, serum or plasm a alkaline phosphatase 71 U/L 50-136 Not Available [facility] (Lab)_do Not Use [address], [place], [place], [address], 09/30/2020 18:13:51 10/01/19 21 09/30/2020 CMP, serum or plasm a protein 8.0 g/dL 6.4-8. 3 Not Available [facility] (Lab)_do Not Use [address], [place], [address], 09/30/2020 18:13:51 10/01/19 21 09/30/2020 CMP, serum or plasm a ALT (SGPT) 26 U/L 30-65 low Not Available [facility] (Lab)_do Not Use [address], [place], [address], 09/30/2020 18:13:51 10/01/19 21 09/30/2020 CMP, serum or plasm a AST (SGOT) 14 U/L 15-37 low Not Available [facility] (Lab)_do Not Use [address], [place], [address], 09/30/2020 18:13:51 10/01/19 21 09/30/2020 CMP, serum or plasm a A/G ratio 1.11 Na 1.00-2 .50 Not Available [facility] (Lab)_do Not Use [address] [place], [address], 09/30/2020 18:13:51 10/01/19 21 09/30/2020 CMP, serum or plasm a BUN/creatine ratio 20.00 Na 6.00-2 0.00 Not Available [facility] (Lab)_do Not Use [address] [place], [address], 09/30/2020 18:13:51 10/01/19 21 09/30/2020 CMP, serum or plasm a anion gap 11.0 mmol/ L 3.0-11 .0 Not Available [facility] (Lab)_do Not Use [address], [place], [address], 09/30/2020 18:13:51 10/01/19 21 09/30/2020 CMP, serum or plasm a osmolality calcuated 278 mOsm/ kg 275-29 5 Not Available [facility] (Lab)_do Not Use [address], [place], [place], [address], 09/30/2020 18:13:51 10/01/19 21 09/30/2020 amyla se, serum or plasm a amylase 50 U/L 25-115 Not Available [facility] (Lab)_do Not Use [address], [place], [place], [address], 09/30/2020 18:13:52 10/01/19 21 09/30/2020 lipas e, serum or plasm a lipase 137 U/L 100-50 0 Not Available [facility] (Lab)_do Not Use [address], [place], [place], [address], 09/30/2020 18:13:53 10/01/19 21 09/30/2020 TSH, serum or plasm a TSH 0.82 uIU/m L 0.34-4 .00 Not Available [facility] (Lab)_do Not Use [address], [place], [place], [address], 09/30/2020 18:13:54 10/01/19 21 09/30/2020 GFR, estim ated (eGFR ), serum GFR >60.00 mL/mi n >60.00 Not Available [facility] (Lab)_do Not Use [address], [place], [place], [address], 09/30/2020 18:13:55 10/01/19 21 09/30/2020 PT/IN R prothrombin time 12.7 sec 11.0-1 4.0 Not Available [facility] (Lab)_do Not Use [address], [place], [place], [address], 09/30/2020 18:20:18 10/01/19 21 09/30/2020 PT/IN R INR 1.1 Na see below INR Inter preti ve Data Throm botic Disor aris Recom zulema d INR Proph ylaxi s/esdras atmen t of: Venou s Throm bosis 2.0-3 .0 Pulmo nary Embol ism 2.0-3 .0 Preve ntion of Syste naveed Embol ism from: Tissu e Heart Valve s 2.0-3 .0 Myoca rdial Infar ction 2.0-3 .0 (prev ent syste naveed embol ism) Valvu lar Heart Disea se 2.0-3 .0 Atria l Fibri latio n 2.0-3 .0 Mecha nical Prost hetic Valve s 2.5.3 .5 Not Available [facility] (Lab)_do Not Use [address], [place], [address], 09/30/2020 18:20:18 10/01/19 21 09/30/2020 C-terry ctive prote in, quant itati ve, serum or plasm a C-reactive protein <0.20 mg/dL 0.00-0 .90 Not Available [facility] (Lab)_do Not Use [address], [place], [address], 09/30/2020 18:26:48 10/01/19 21 09/30/2020 ESR (eryt hrocy te sedim entat ion rate) , blood sedimentatio n rate 6 mm/HR 0-20 Not Available [facility] (Lab)_do Not Use [address], [place], [address], 09/30/2020 19:45:21 10/07/19 21 10/06/2020 pregn ashley test, urine pregnance urine Negati ve Na negati ve Not Available [facility] (Lab)_do Not Use [address], [place], [address], 10/06/2020 08:50:49 10/07/19 21 10/06/2020 covid Ag covid Ag lilly Negati ve Na negati ve Metho dolog y:Sof ia Sars Ag LILLY. Negat neel resul ts do not rule out COVID -19 and shoul d not be used as the sole basis for treat ment or patie nt manag ement decis ions, inclu ding infec tion contr ol decis ions. Negat neel resul ts shoul d be consi dered in the devan xt of a patie nt's recen t expos ures, histo ry and prese nce of clini jae signs and sympt oms consi stent with COVID -19. Not Available [facility] (Lab)_do Not Use [address] [facility], [place], [address], 10/06/2020 09:04:32 Result Notes None recorded. Problems No Known Problems Medical Equipment None Reported. Allergies Allergen ID Allergen Name Allergen Category Reaction Reaction Severity Criticality Documentation Date Start Date Code Code System Note Provider Name and Address Organization Details Recorded Time 40186 Substance with sulfonami de structure and antibacte rial mechanism of action (substanc e) medicatio n Not available Not available Not available 10/20/2020 32876 8003 SNOMED Marlene [address] 16:16:27 [address] morphine medicatio n Not available Not available Not available 10/20/2020 7052 RxNorm Marlene Rodríguez [address] 16:16:46 Medications Name Sig Start Date Stop Date Status Note LastModified by Organization Details LastModified Time amoxicillin 500 mg capsule TAKE 1 CAPSULE BY MOUTH EVERY 8 HOURS FOR 10 DAYS 09/30 completed Not Available Not Available Not Available omeprazole 40 mg capsule,del ayed release TAKE 1 CAPSULE BY MOUTH ONCE DAILY active Not Available Not Available No t Available tramadol 50 mg tablet TAKE 1 TABLET BY MOUTH EVERY 6 TO 8 HOURS NEEDED FOR PAIN 09/30 completed Not Available Not Available Not Available dicyclomine 10 mg capsule TAKE 1 CAPSULE BY MOUTH TWICE DAILY 09/30 completed Not Available Not Available Not Available Suprep Bowel Prep Kit 17.5 gram-3.13 gram-1.6 gram oral solution Take 177 mL twice a day by oral route as directed for 1 day. 10/20 completed Not Available Not Available Not Available Vitals Date Recorded Body height Oxygen saturation Oxygen saturation in Arterial blood by Pulse oximetry Heart rate Body temperature Systolic And Diastolic Provider Name and Address Organization Details Last Updated DateTime 157.48 cm 99 % 99 % 64 /min 98.1 [degF] 110/70 mm[Hg] Marlene Rodríguez [place] [facility] [place] 16:15:34 Social History None recorded. Functional Status None recorded. Mental Status None recorded. Family History Relationship Description Onset Age of this Age Resolved Age Notes LastModified by Organization Details LastModified Time Maternal Grandmother Malignant neoplasm of skin [email or web address] Not available 2020 16:18:02 Paternal Grandfather Malignant tumor of colon Not available 2020 16:18:18 Medical History Condition Response ARTHRITIS N HEADACHES N RHEUMATIC FEVER N USE OF BLOOD THINNERS N STROKE N DIABETES N HIGH CHOLESTEROL N GASTROINTESTINAL BLEEDING N PATIENT DENIES SIGNIFICANT PAST MEDICAL HISTORY N HEPATITIS / LIVER DISEASE N ASTHMA N PULMONARY DISEASE N SEIZURES N BOWEL PROBLEMS N HAVE YOU BEEN HOSPITALIZED OR SEEN IN [facility] ER IN THE PAST YEAR ? N HERPES N THYROID DISEASE N ULCERS N ANEMIA N DIZZINESS N GERD / HEARTBURN / REFLUX N HYPERTENSION N HIV / AIDS N OBESITY N ANEMIA/BLOOD DISORDER N ANEURYSM N PULMONARY EMBOLISM N HEART DISEASE N CANCER N Gynecological HistoryNo gynecological history recorded. Obstetrics History GPAL:G 0 P 0 0 0 0 Past Encounters Encounter ID Performer Location Encounter Start Date Encounter Closed Date Diagnosis/Indication Diagnosis SNOMED-CT Code Diagnosis ICD10 Code Diagnosis Note [id number] Chandler Stevens MD [facility] [address] [place] [address] [place] [address] 09/30/2020 15:39:13 10/03/2020 09:10:00 Early satiety 476105652 R68.81 Epigastric pain 63543376 R10.13 Lower abdominal pain 545 24992 R10.30 Altered gino wel function 45683900 R19.4 Diarrhea 43305176 R19.7 Family his tory of cancer of colon 543403921 Z80.0 [id number] Chandler Stevens MD [facility] [address] [place] [address] 10/20/2020 15:57:03 10/24/2020 15:09:53 Health Concerns Section Related Observation LastModified by Organization Detai ls LastModified Time None Recorded Concern Status LastModified by Organization Details LastModified Time None Recorded Advance Directives Directive None Recorded Payers Insurance Date Sequence Insurance Name Policy Number Policy Nicholas Covered Member ID Nicholas Member ID Guarantor Name 11/28/2020 1 [facility] (MEDICAID HMO) Blanca Lai [id number] Blanca Lai Notes Date Note Type Note Provider Name and Address Organization Details Recorded Time 09/30/2020 text/html 30 y/o female, referred by Penny Do, for evaluation of abdominal pain. She arrives today with c/o abdominal pain and bloating and early satiety. She previously had episodes of diarrhea, which sent her to ER, but her diarrhea has resolved. She had a recent abdominal US, which was normal. She reports that her symptoms began about 1 year ago when she developed excessive gas. She has noticed what makes her symptoms worse. She denies using ibuprofen for pain. She has SHx of appendectomy. She denies Fhx of ulcers, Crohn's, or gastritis. She gives a FHx of colon cancer in paternal grandfather at age 65. Chandler Stevens MD [address] [facility], [place], [address], [place] [facility] [place] 09/30/2020 18:59:02 10/20/2020 text/html This is a 30-year-old female who presents for follow-up. The patient was initially seen for evaluation of left upper quad abdominal pain, altered bowel habits, early satiety and family history of colorectal cancer in her grandfather in his 60s. The patient was initially scheduled for an EGD colonoscopy however the patient called and canceled her colonoscopy. The patient underwent laboratory studies and a EGD. EGD done 10/06/2020 revealed normal follicles and mild gastritis. GE junction biopsy revealed inflamed gastric mucosa, gastric biopsy revealed focal chronic inflammation and small bowel biopsies were normal. Laboratory studies 09/30/2020 revealed sed rate of 6, GFR greater than 60, lipase 137, 12.7, INR 1.1, amylase 50, celiac sprue normal, C-reactive protein less than 0.2, normal TSH 0.683, normal CMP. The patient reports having only one episode of diarrhea several days ago. She reports having continued symptoms dyspepsia. She is taking her meds so 40 mg daily. She only started medication 1 week ago.Laboratory studies from 08/30/2020 revealed a lipase of 39 amylase 54 sodium 138, potassium 3.8, chloride 103, CO2 25, calcium 9.7, BUN 11, creatinine 0.5, glucose 117, albumin 4.3, bilirubin 0.3, alk phos 71, AST 15, ALT 16, W BC 6.1, hemoglobin 12.1, hematocrit 36.7, MCV 76.9, platelets 251. Transabdominal ultrasound 2020 revealed normal liver, gallbladder, bile duct system, spleen no ascites. Impression:1. Left upper quad abdominal pain. Status post EGD 10/06/2020 revealed no significant findings. Patient on omeprazole 40 mg p.o. daily. Previous transabdominal ultrasound normal. Recent laboratory studies 09/30/2020 with a normal limits.2. Early satiety3. Family history of colon cancer in paternal grandfather in his 60s.4. History of change in bowel habit Recommendations:1. Continue omeprazole 40 mg p.o. daily 2. Low FODMAP diet 3. Antireflux precautions 4. If symptoms continue consider colonoscopy, CT scan abdomen pelvis and gastric emptying time.5. Follow-up in 6 weeks. Chandler Stevens MD [address] [place], [address], [facility] [place] [facility] [place] 10/20/2020 22:53:59 OBGyn Episode No OBEpisode recorded.
--- NOTE | 2025-01-11 10:50 | W.ED.ABDPA2 ---
Documented by User: GILBERTO Brand 01/11/25 16:45 HPI - Abdominal Pain General: Chief Complaint: Abdominal Pain Stated Complaint: colonoscopy 01/07, pain and bloody stool Time Seen by Provider: 01/11/25 10:48 Source: patient Mode of arrival: ambulatory Limitations: no limitations History of Present Illness: Patient is a 35-year-old female who presents to ED today for medical evaluation of bloody stools and abdominal pain. Patient states she underwent colonoscopy at [facility] by Dr. Russo for evaluation of bloody stools that she had been having. Procedure was approximately 2 days ago. Patient states she was doing well following the procedure until today when she began noticing bright red bloody stools as well as significant left-sided abdominal pain. She states Dr. Russo is possibly concerned for ulcerative colitis and states he did take biopsies. She reports low-grade fever yesterday evening of 99.6. She has not had any vomiting. Denies lightheadedness/dizziness. MD elicited complaint: abdominal pain Pertinent past history: other (recent colonoscopy) Onset (ago): hour(s) Pain Consistency: intermittent Location: LUQ and LLQ Severity: severe Quality: cramping and sharp Radiation: none Migration to: no migration Exacerbating factors: nothing Relieving factors: nothing Associated Symptoms: Reports fever(s) (reports low grade 99.6) and hematochezia; Denies chills, dysuria, nausea and vomiting Related Data Date of Last Menstrual Period: 01/04/25 Previous Rx's ?Medication ?Instructions ?Recorded sertraline 25 mg tablet (Zoloft) 25 mg PO DAILY #30 tabs 10/29/24 Allergies Allergy/AdvReac Type Severity Reaction Status Date / Time Iodinated Contrast Media Allergy Unknown Verified 10/29/24 11:16 morphine Allergy Unknown Verified 10/29/24 11:16 Sulfa (Sulfonamide Allergy UNKNOWN Verified 10/29/24 11:16 Antibiotics) Review of Systems Const: Reports: fever(s) (reports low grade 99.6); Denies: chills, body aches, fatigue or malaise Card: Denies: chest pain Resp: Denies: dyspnea GI: Reports: abdominal pain and hematochezia; Denies: nausea or vomiting : Denies: flank pain, difficulty voiding, dysuria, urinary frequency, urinary urgency or urinary hesitancy Musc: Denies: neck pain, back pain, extremity pain, extremity swelling, joint swelling or joint redness Skin/Breast: Denies: rash Neuro: Denies: headache(s), numbness in extremities, weakness in extremities, sensory changes or dizziness PFSH ED PFSH: Medical History Psychiatric care Panic disorder TENA (generalized anxiety disorder) Ptosis of left eyelid No pertinent past medical history neghx: htn,dm,thyroid,dvt/pe PCP: Jeannie Surgical History Hx of appendectomy Family History Grandfather Colon cancer Paternal--dx age 70 Heart disease Maternal Family/Other Breast cancer Paternal Great Grandmother--dx age unknown Thyroid disease Maternal Aunt Mother Thyroid disease Grandmother Hypercholesteremia Paternal Denies family history of Ovarian cancer Diabetes Bleeding disorder Hypertension Uterine cancer Stroke Social History Smoking and tobacco/nicotine status: never used tobacco/nicotine Alcohol intake: never Substance/Drug Use: never Female Reproductive History: Date of last menstrual period: 01/04/25 Physical Exam Const: COMMON NORMALS: no acute distress, average body habitus, patient oriented x3, no limitations, healthy appearing, alert and well nourished GENERAL APPEARANCE: cooperative ORIENTATION/CONSCIOUSNESS: Yes awake, Yes oriented to person, Yes oriented to place and Yes oriented to time Eye: COMMON NORMALS: no scleral icterus Resp: COMMON NORMALS: normal respiratory effort and clear to auscultation bilaterally AUSCULTATION: clear to auscultation bilaterally Cardio: COMMON NORMALS: regular rate and regular rhythm RATE: regular rate RHYTHM: regular rhythm GI: COMMON NORMALS: Normal to inspection, nondistended, normoactive bowel sounds present, Soft to palpation, No hepatosplenomegaly present and no masses INSPECTION: Yes normal to inspection AUSCULTATION: Yes Hypoactive bowel sounds present PALPATION: Yes Soft to palpation, Yes Tenderness to palpation present (GI) (throughout L side of abdomen), No Guarding due to palpation present (GI), No Rigid due to palpation and Yes No hepatosplenomegaly present : COMMON NORMALS: Yes no CVA tenderness BLADDER/KIDNEY EXAM: Yes no CVA tenderness Back/Pelvis: COMMON NORMALS: no CVA tenderness and thoracic and lumbar spine normal to inspection Extremity: GENERAL: Yes normal exam except as noted Neuro: COMMON NORMALS: patient oriented x3, moves all extremities, no focal motor deficits and no sensory deficits noted SENSORIUM/ORIENTATION: Yes alert, Yes oriented to person, Yes oriented to place and Yes oriented to time Skin: COMMON NORMALS: no rashes or lesions noted GENERAL SKIN EXAM: no rashes or lesions noted Course Consultations: Consultation #1: [facility]-states their team will consult on her upon arrival if we decide to transfer Consultation #2: MARI Recio-[facility] hospitalist-accepting transfer on behalf of Dr. Julien Vital Signs: Vital signs: Vital Signs Temperature 98.5 F 01/11/25 10:31 Pulse Rate 96 01/11/25 10:31 Respiratory Rate 16 01/11/25 10:31 Blood Pressure 111/66 01/11/25 16:34 Pulse Oximetry 100 01/11/25 16:34 Oxygen Delivery Me thod Room Air 01/11/25 10:31 MDM - Abdominal Pain Medical Decision Making Patient is a 35-year-old female here 2 days post colonoscopy for abdominal pain and bloody stools. Patient states she had been having bloody stools hence why she underwent colonoscopy. She states she was doing good following this procedure until today when she began developing significant abdominal pain and worsening bloody stools. Vital signs are stable upon arrival. Blood pressure is soft but this seems to be normal for patient. Blood work overall is unremarkable. White count is normal. Hemoglobin was 10.8 without any recent comparisons (later while speaking to [facility]-they had a hemoglobin of 10.6 on 04/2024 for a comparison). UA is contaminated. CT scan showing a moderate amount of high density fluid in her pelvis that could be due to bleeding or infection. No obvious pneumoperitoneum identified. Spoke to Dr. Reyes who recommended potentially transferring her back to [facility]. I did speak to Dr. Miller here and he did not feel this would be related to her colonoscopy. Questioned DIRECTOR MARKET INTELLIGENCE etiology? She has no history of hemorrhagic ovarian cysts. LMP was about a week or so ago. Hcg negative. US of her pelvis obtained showing same fluid collection seen on CT. No obvious etiology for this at this time. I did speak to [facility] who [facility] Medical Records I reviewed the patient's medical records. Lab Data I reviewed the patient's lab results. 01/11/25 15:50 01/11/25 11:34 Labs/Radiology: Radiology Impressions Abdomen/Pelvis CT 01/11/25 10:58 IMPRESSION: 1. Moderate amount of high density fluid in the pelvis. This could be due to bleeding or infection in the pelvis. No abscess is seen. 2. Bowel wall thickening of the RIGHT and LEFT colon. 3. Surgical sutures in the RIGHT lower quadrant in the region of the cecum. 4. No pneumoperitoneum identified. Pelvis Ultrasound 01/11/25 14:32 IMPRESSION: 1. Arguable uterine hypervascularity. 2. Moderate amount free pelvic fluid. 3. Otherwise unremarkable pelvic sonogram. No adnexal lesions are observed. Laboratory Results WBC 6.90 10^3/uL (3.29-11.43) 01/11/25 11:34 RBC 4.98 10^6/uL (3.85-5.65) 01/11/25 11:34 Hgb 9.90 g/dL (11.27-16.99) L 01/11/25 15:50 Hct 32.9 % (36-47) L 01/11/25 15:50 MCV 72.3 fl (85-98) L 01/11/25 11:34 MCH 21.7 pg (27-33) L 01/11/25 11:34 MCHC 30.0 g/dL (30-55) 01/11/25 11:34 RDW 15.4 % (12.1-15.1) H 01/11/25 11:34 Plt Count 373 10^3/cmm (157-399) 01/11/25 11:34 MPV 9.5 fL (7.4-10.4) 01/11/25 11:34 Neut % (Auto) 68.7 % 01/11/25 11:34 Lymph % (Auto) 22.9 % 01/11/25 11:34 Hamlin % (Auto) 7.0 % 01/11/25 11:34 Eos % (Auto) 0.6 % 01/11/25 11:34 Baso % (Auto) 0.4 % 01/11/25 11:34 Neut # (Auto) 4.74 10^3/uL (1.8-7.7) 01/11/25 11:34 Lymph # (Auto) 1.6 10^3/uL (0.8-4.8) 01/11/25 11:34 Hamlin # (Auto) 0.5 10^3/uL (0.2-0.9) 01/11/25 11:34 Eos # (Auto) 0.0 10^3/uL (0.0-0.8) 01/11/25 11:34 Baso # (Auto) 0.0 10^3/uL (0.0-0.1) 01/11/25 11:34 Nucleated RBC % (auto) 0 % 01/11/25 11:34 Nucleated RBCs # 0.0 /100WBC 01/11/25 11:34 Sodium 143 mmol/L (136-145) 01/11/25 11:34 Potassium 3.6 mmol/L (3.5-5.1) 01/11/25 11:34 Chloride 105 mmol/L (98-107) 01/11/25 11:34 Carbon Dioxide 24 mmol/L (22-29) 01/11/25 11:34 Anion Gap 17.6 (5-19) 01/11/25 11:34 BUN 8 mg/dL (6-20) 01/11/25 11:34 Creatinine 0.4 mg/dL (0.5-0.9) L 01/11/25 11:34 GFR Calculation 180.6 mL/min (90-130) H 01/11/25 11:34 Glucose 80 mg/dL (65-115) 01/11/25 11:34 Calculated Osmolality 293 mOsm/kg (285-295) 01/11/25 11:34 Calcium 8.8 mg/dL (8.5-10.5) 01/11/25 11:34 Total Bilirubin 0.3 mg/dL (0.15-1.2) 01/11/25 11:34 AST 16 U/L (0-32) 01/11/25 11:34 ALT 11 U/L (0-33) 01/11/25 11:34 Alkaline Phosphatase 86 U/L (35-105) 01/11/25 11:34 Total Protein 7.5 g/dL (6.6-8.7) 01/11/25 11:34 Albumin 4.3 g/dL (3.5-5.2) 01/11/25 11:34 Globulin 3.2 g/dL (1.3-4.6) 01/11/25 11:34 Lipase 27 U/L (13-60) 01/11/25 11:34 HCG, Qual Negative (Negative) 01/11/25 11:34 Urine Color Yellow (Yellow) 01/11/25 11:53 Urine Appearance Cloudy (CLEAR) A 01/11/25 11:53 Urine pH 5.5 (5-7) 01/11/25 11:53 Ur Specific Wetmore 1.031 (1.005-1.030) H 01/11/25 11:53 Urine Protein 1+ (Negative) A 01/11/25 11:53 Urine Glucose (UA) Negative (Normal) 01/11/25 11:53 Urine Ketones 2+ (Negative) H 01/11/25 11:53 Urine Blood Trace (Negative) A 01/11/25 11:53 Urine Nitrate Negative (Negative) 01/11/25 11:53 Urine Bilirubin Negative (Negative) 01/11/25 11:53 Urine Urobilinogen 1.0 mg/dL (Negative) 01/11/25 11:53 Ur Leukocyte Esterase Negative (Negative) 01/11/25 11:53 Urine RBC 3-5 /hpf (0-2) 01/11/25 11:53 Urine WBC 0-5 /hpf (0-5) 01/11/25 11:53 Ur Squamous Epith Cells 21-50 /hpf (0-5) H 01/11/25 11:53 Amorphous Sediment Not Reportable 01/11/25 11:53 Urine Bacteria 2+ /hpf (NONE) H 01/11/25 11:53 Hyaline Casts 0.81 /lpf 01/11/25 11:53 All radiology interpretation(s) finalized by discharge Discharge Plan Discharge Patient Disposition: Xfer Short-Term Hosp Clinical Impression: Free fluid in pelvis, Bloody stool Condition: Stable Referrals: Edwar Dennis MD [Primary Care Provider, Family Practice] Print Language: Tunisian Coding Level of Care Code ED Research Support Specialist for Chg Fwd Documented by User: Olvin Reyes DO 01/11/25 17:30 HPI - Abdominal Pain General: Chief Complaint: Abdominal Pain Stated Complaint: colonoscopy 01/07, pain and bloody stool Time Seen by Provider: 01/11/25 10:48 Related Data Previous Rx's ?Medication ?Instructions ?Recorded sertraline 25 mg tablet (Zoloft) 25 mg PO DAILY #30 tabs 10/29/24 Allergies Allergy/AdvReac Type Severity Reaction Status Date / Time Iodinated Contrast Media Allergy Unknown Verified 10/29/24 11:16 morphine Allergy Unknown Verified 10/29/24 11:16 Sulfa (Sulfonamide Allergy UNKNOWN Verified 10/29/24 11:16 Antibiotics) PFSH ED PFSH: Medical History Psychiatric care Panic disorder TENA (generalized anxiety disorder) Ptosis of left eyelid No pertinent past medical history neghx: htn,dm,thyroid,dvt/pe PCP: Jeannie Surgical History Hx of appendectomy Family History Grandfather Colon cancer Paternal--dx age 70 Heart disease Maternal Family/Other Breast cancer Paternal Great Grandmother--dx age unknown Thyroid disease Maternal Aunt Mother Thyroid disease Grandmother Hypercholesteremia Paternal Denies family history of Ovarian cancer Diabetes Bleeding disorder Hypertension Uterine cancer Stroke Social History Smoking and tobacco/nicotine status: never used tobacco/nicotine Alcohol intake: never Substance/Drug Use: never Course Vital Signs: Vital signs: Vital Signs Temperature 98.5 F 01/11/25 10:31 Pulse Rate 96 01/11/25 10:31 Respiratory Rate 16 01/11/25 10:31 Blood Pressure 111/66 01/11/25 16:34 Pulse Oximetry 100 01/11/25 16:34 Oxygen Delivery Me thod Room Air 01/11/25 10:31 MDM - Abdominal Pain Medical Decision Making Patient is a 35-year-old female here 2 days post colonoscopy for abdominal pain and bloody stools. Patient states she had been having bloody stools hence why she underwent colonoscopy. She states she was doing good following this procedure until today when she began developing significant abdominal pain and worsening bloody stools. Vital signs are stable upon arrival. Blood pressure is soft but this seems to be normal for patient. Blood work overall is unremarkable. White count is normal. Hemoglobin was 10.8 without any recent comparisons (later while speaking to [facility]-they had a hemoglobin of 10.6 on 04/2024 for a comparison). UA is contaminated. CT scan showing a moderate amount of high density fluid in her pelvis that could be due to bleeding or infection. No obvious pneumoperitoneum identified. Spoke to Dr. Reyes who recommended potentially transferring her back to [facility]. I did speak to Dr. Miller here and he did not feel this would be related to her colonoscopy. Questioned DIRECTOR [employer] INTELLIGENCE etiology? She has no history of hemorrhagic ovarian cysts. LMP was about a week or so ago. Hcg negative. US of her pelvis obtained showing same fluid collection seen on CT. No obvious etiology for this at this time. I did speak to [facility] who recommends transfer. Spoke to [facility] hospitalist who is accepting. Chart reviewed and patient discussed with midlevel. Agree with assessment and plan. Lab Data 01/11/25 15:50 01/11/25 11:34 Labs/Radiology: Radiology Impressions Abdomen/Pelvis CT 01/11/25 10:58 IMPRESSION: 1. Moderate amount of high density fluid in the pelvis. This could be due to bleeding or infection in the pelvis. No abscess is seen. 2. Bowel wall thickening of the RIGHT and LEFT colon. 3. Surgical sutures in the RIGHT lower quadrant in the region of the cecum. 4. No pneumoperitoneum identified. Pelvis Ultrasound 01/11/25 14:32 IMPRESSION: 1. Arguable uterine hypervascularity. 2. Moderate amount free pelvic fluid. 3. Otherwise unremarkable pelvic sonogram. No adnexal lesions are observed. Laboratory Results WBC 6.90 10^3/uL (3.29-11.43) 01/11/25 11:34 RBC 4.98 10^6/uL (3.85-5.65) 01/11/25 11:34 Hgb 9.90 g/dL (11.27-16.99) L 01/11/25 15:50 Hct 32.9 % (36-47) L 01/11/25 15:50 MCV 72.3 fl (85-98) L 01/11/25 11:34 MCH 21.7 pg (27-33) L 01/11/25 11:34 MCHC 30.0 g/dL (30-55) 01/11/25 11:34 RDW 15.4 % (12.1-15.1) H 01/11/25 11:34 Plt Count 373 10^3/cmm (157-399) 01/11/25 11:34 MPV 9.5 fL (7.4-10.4) 01/11/25 11:34 Neut % (Auto) 68.7 % 01/11/25 11:34 Lymph % (Auto) 22.9 % 01/11/25 11:34 Hamlin % (Auto) 7.0 % 01/11/25 11:34 Eos % (Auto) 0.6 % 01/11/25 11:34 Baso % (Auto) 0.4 % 01/11/25 11:34 Neut # (Auto) 4.74 10^3/uL (1.8-7.7) 01/11/25 11:34 Lymph # (Auto) 1.6 10^3/uL (0.8-4.8) 01/11/25 11:34 Hamlin # (Auto) 0.5 10^3/uL (0.2-0.9) 01/11/25 11:34 Eos # (Auto) 0.0 10^3/uL (0.0-0.8) 01/11/25 11:34 Baso # (Auto) 0.0 10^3/uL (0.0-0.1) 01/11/25 11:34 Nucleated RBC % (auto) 0 % 01/11/25 11:34 Nucleated RBCs # 0.0 /100WBC 01/11/25 11:34 Sodium 143 mmol/L (136-145) 01/11/25 11:34 Potassium 3.6 mmol/L (3.5-5.1) 01/11/25 11:34 Chloride 105 mmol/L (98-107) 01/11/25 11:34 Carbon Dioxide 24 mmol/L (22-29) 01/11/25 11:34 Anion Gap 17.6 (5-19) 01/11/25 11:34 BUN 8 mg/dL (6-20) 01/11/25 11:34 Creatinine 0.4 mg/dL (0.5-0.9) L 01/11/25 11:34 GFR Calculation 180.6 mL/min (90-130) H 01/11/25 11:34 Glucose 80 mg/dL (65-115) 01/11/25 11:34 Calculated Osmolality 293 mOsm/kg (285-295) 01/11/25 11:34 Calcium 8.8 mg/dL (8.5-10.5) 01/11/25 11:34 Total Bilirubin 0.3 mg/dL (0.15-1.2) 01/11/25 11:34 AST 16 U/L (0-32) 01/11/25 11:34 ALT 11 U/L (0-33) 01/11/25 11:34 Alkaline Phosphatase 86 U/L (35-105) 01/11/25 11:34 Total Protein 7.5 g/dL (6.6-8.7) 01/11/25 11:34 Albumin 4.3 g/dL (3.5-5.2) 01/11/25 11:34 Globulin 3.2 g/dL (1.3-4.6) 01/11/25 11:34 Lipase 27 U/L (13-60) 01/11/25 11:34 HCG, Qual Negative (Negative) 01/11/25 11:34 Urine Color Yellow (Yellow) 01/11/25 11:53 Urine Appearance Cloudy (CLEAR) A 01/11/25 11:53 Urine pH 5.5 (5-7) 01/11/25 11:53 Ur Specific Wetmore 1.031 (1.005-1.030) H 01/11/25 11:53 Urine Protein 1+ (Negative) A 01/11/25 11:53 Urine Glucose (UA) Negative (Normal) 01/11/25 11:53 Urine Ketones 2+ (Negative) H 01/11/25 11:53 Urine Blood Trace (Negative) A 01/11/25 11:53 Urine Nitrate Negative (Negative) 01/11/25 11:53 Urine Bilirubin Negative (Negative) 01/11/25 11:53 Urine Urobilinogen 1.0 mg/dL (Negative) 01/11/25 11:53 Ur Leukocyte Esterase Negative (Negative) 01/11/25 11:53 Urine RBC 3-5 /hpf (0-2) 01/11/25 11:53 Urine WBC 0-5 /hpf (0-5) 01/11/25 11:53 Ur Squamous Epith Cells 21-50 /hpf (0-5) H 01/11/25 11:53 Amorphous Sediment Not Reportable 01/11/25 11:53 Urine Bacteria 2+ /hpf (NONE) H 01/11/25 11:53 Hyaline Casts 0.81 /lpf 01/11/25 11:53 Discharge Plan Discharge Patient Disposition: Xfer Short-Term Hosp Clinical Impression: Free fluid in pelvis, Bloody stool Condition: Stable Referrals: Edwar Dennis MD [Primary Care Provider, Family Practice] Print Language: Tunisian Coding Level of Care Code ED Research Support Specialist for Nash Gusman
--- NOTE | 2025-01-11 10:58 | CT_ITS ---
WS: [id number] Exam: CT abdomen pelvis con [id number] Date/Time of Exam: 01/11/2025 12:20 PM Reason For Exam: colonoscopy 2 days ago; severe abd pain, bloody stools DLP: 327.[address] scans at [facility] use at least one of these dose optimization techniques: automated exposure control; mA and/or kV adjustment per patient size (includes targeted exams where dose is matched to clinical indication); or iterative reconstruction. Lower lung zones are clear. The liver, gallbladder, spleen, stomach, and pancreas appear normal. The kidneys are unremarkable. The abdominal aorta is normal in contour. Small bowel loops are nondilated. There appears to be mucosal thickening of the colon particularly the LEFT colon. No obvious pneumope ritoneum. No lymphadenopathy. Bowel wall thickening of the RIGHT colon. Moderate amount of free fluid in the pelvis. No pelvic mass. No obvious filling defect in the urinary bladder. No pelvic lymphadenopathy. Surgical sutures in the RIGHT pelvis which may be within the bowel. This is in the region of the cecum. No destructive bone lesions are seen. CT/CT abdomen pelvis con [id number] IMPRESSION: 1. Moderate amount of high density fluid in the pelvis. This could be due to bl eeding or infection in the pelvis. No abscess is seen. 2. Bowel wall thickening of the RIGHT and LEFT colon. 3. Surgical sutures in the RIGHT lower quadrant in the region of the cecum. 4. No pneumoperitoneum identified.
[2025-01-11 11:54] LABS: Hematocrit 36.0 % (36-47); Hemoglobin 10.80 g/dL (11.27-16.99); Mean Corpuscular HGB Conc 30.0 g/dL (30-55); Mean Corpuscular Hemoglobin 21.7 pg (27-33); Mean Corpuscular Volume 72.3 fl (85-98); Nucleated Red Blood Cells % 0 %; Platelet Count 373 10^3/cmm (157-399); Red Blood Count 4.98 10^6/uL (3.85-5.65); White Blood Count 6.90 10^3/uL (3.29-11.43)
[2025-01-11 12:12] LABS: HCG, Serum Qual Negative (Negative)
[2025-01-11 12:18] LABS: Alanine Aminotransferase 11 U/L (0-33); Albumin Level 4.3 g/dL (3.5-5.2); Alkaline Phosphatase 86 U/L (35-105); Anion Gap 17.6 (5-19); Aspartate Amino Transferase 16 U/L (0-32); Blood Urea Nitrogen 8 mg/dL (6-20); Calcium 8.8 mg/dL (8.5-10.5); Carbon Dioxide 24 mmol/L (22-29); Chloride 105 mmol/L (98-107); Creatinine Clr Calc Pharmacy 161.8813; Globulin 3.2 g/dL (1.3-4.6); Glucose 80 mg/dL (65-115); Lipase 27 U/L (13-60); Osmolality Calculated 293 mOsm/kg (285-295); Potassium 3.6 mmol/L (3.5-5.1); Sodium 143 mmol/L (136-145); Total Protein 7.5 g/dL (6.6-8.7)
[2025-01-11 12:23] LABS: Glucose Urine UA Negative (Normal); Nitrate Urine Negative (Negative)
[2025-01-11 12:26] LABS: Add Urine Microscopic? YES
[2025-01-11 12:34] LABS: Specific Gravity, Urine 1.031 (1.005-1.030)
--- NOTE | 2025-01-11 14:32 | USR_ITS ---
PROCEDURE INFORMATION: Exam: US Pelvis, Complete, Non-Obstetric Exam date and time: 01/11/2025 3:06 PM Age: 35 years old Clinical indication: Pelvic pain; Additional info: Fluid in pelvis? Blood? Hair Baler origin? TECHNIQUE: Imaging protocol: Transabdominal pelvic nonobstetric ultrasound. Complete exam. Real time ultrasound with image documentation. COMPARISON: CT abdomen pelvis wo con [id number] 01/11/2025 12:28 PM FINDINGS: Uterus: Anteverted, measuring 10.5 x 4.6 x 5 4 cm. No myometrial calcifications are present. Uterus is arguably hypervascular without focal mass. 10 mm. Endometrial vascularity is normal. No masses are seen. Right ovary/adnexa: Right ovary measures 33 x 22 x 24 mm (9.1 cc). Several follicular cysts are identified. Ovarian blood flow is normal. Left ovary/adnexa: Left ovary measures 45 x 20 x 26 mm (11 point 9 7 cc). Several follicular cysts are present. The ovary shows normal blood flow. Intraperitoneal space: No intraperitoneal fluid. Urinary bladder: Normal. Soft tissues: No pelvic mass lesions are seen. A large amount of free fluid is identified within the pelvis. This is consistent with the appearance on the concurrent CT. US/US pelvic complete* [id number] IMPRESSION: 1. Arguable uterine hypervascularity. 2. Moderate amount free pelvic fluid. 3. Otherwise unremarkable pelvic sonogram. No adnexal lesions are observed.
[2025-01-11 15:54] LABS: Hematocrit 32.9 % (36-47); Hemoglobin 9.90 g/dL (11.27-16.99)
[2025-01-11 17:46] LABS: INR 1.10 (0.8-1.2); Prothrombin Time 15.00 SECONDS (12.1-14.9)
[2025-01-11 17:47] LABS: Partial Thromboplastin Time 26.7 SECONDS (23.9-36.7)
[2025-01-11 18:49] LABS: Hematocrit 32.3 % (36-47); Hemoglobin 9.60 g/dL (11.27-16.99)
[2025-01-12] VITALS (18 sets, daily range): BP systolic 92–103; BP diastolic 56–75; PULSE 67–88; RESP 14–16; TEMP 36.8; O2SAT 92–100
[2025-01-12 00:52] LABS: Hematocrit 34.9 % (36-47); Hemoglobin 10.30 g/dL (11.27-16.99)
--- NOTE | 2025-01-12 09:04 | PC.NURSE ---
PT resting in bed. Denies any pain or needs at this time. PT updated on pending bed at [facility].
[2025-01-12 09:52] LABS: Hemoglobin 9.50 g/dL (11.27-16.99)
[2025-01-12 12:36] LABS: C.Diff PCR (Lab) NEGATIVE (Negative)
== END 2025-01-12 16:00 | disposition short-term general hospital (02) ==
PROVIDERS: Nurse Practitioner; Emergency Provider Physician Assistant; PCP Family Medicine
DX: K92.1 Melena (principal); R19.09 Other intra-abdominal and pelvic swelling, mass and lump
CPT/HCPCS: 36415; 74176; 76830; 76856; 80053; 81001; 82274; 83630; 83690; 84703; 85014; 85018; 85025; 85610; 85730; 87045; 87177; 87209; 87427; 87449; 87493; 96360; 99285; J7030